=== PATIENT | female | born 1970 | race Caucasian/White ===

== ENCOUNTER → 2017-12-09 09:47 | Outpatient (CLI) | payer BC ==
--- NOTE | ~2017-12-09 | EC ---
PATIENT:CAMMIE SUAREZ DATE OF SERVICE: 12/09/17 SEX: F MEDICAL RECORD: [id number] DATE OF : 68 [facility] AGE OF PATIENT: 47 ADMISSION DATE: 12/09/17 REFERRING PHYSICIAN: INTERPRETING PHYSICIAN: RAYO GOSS MD ECHOCARDIOGRAM REPORT ECHO CHARGES 4 ECHO COMPLETE CLINICAL DIAGNOSIS: MURMUR/CP/SOB ECHOCARDIOGRAPHIC MEASUREMENTS (adult normal given) AC root (d.<3.7cm) 3.0 cm LV Septum d (<1.2 cm> 0.9 cm Valve Excursion 25.2 cm LV Septum (systole) 1.5 cm Left Atria (s.<4.0cm> 4.9 cm LVPW d(<1.2cm) 0.9 cm RV (d.<2.3cm) 2.1 cm LVPW (sytole) 1.5 cm LV diastole(<5.6CM) 7.1 cm MV E-F(>70mm/sec) cm LV systole 5.0 cm LVOT Diameter 2.0 cm MV exc.(>10mm) cm Est.ejection fraction (50-75%) % Pericardial Effusion N DOPPLER: LVIT cm/sec A 24.0 cm/sec E 123 cm/sec LA cm/sec RVSP 26.3 mmHg LVOT 59.0 cm/sec AOP1/2T m/s Asc. Ao 105 cm/sec RVOT 50.0 cm/sec RA cm/sec PA 78.0 cm/sec AV Gradient Peak 4.4 mmHg AV Mean 2.1 mmHg AV Area 2.0 cm MV Gradient Peak 9.6 mmHg MV Mean 2.8 mmHg MV Area cm COMMENTS: [employer] Director: Moiz WHITNEYOE Application Manager: Shannon Goss TAPE# PACS DATE OF SERVICE: 12/09/2017 PROCEDURE: Transthoracic echocardiogram. FINDINGS: 1. The patient has a dilated left ventricle, has mild decreased ejection fraction of 45% to 50%. 2. The patient has severe eccentrically directed mitral regurgitation with prolapse of the posterior mitral valve leaflet. 3. Tricuspid valve has trace tricuspid regurgitation. ECHOCARDIOGRAM REPORT [id number] CAMMIE SUAREZ 4. The right ventricular systolic pressures are normal. 5. The right ventricle is normal functionally. 6. The right atrium is mildly dilated. 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 Recommend further workup. ALISON may be helpful. TRANSINT:[id number] Voice Confirmation ID: [id number] DOCUMENT ID: [id number] RAYO GOSS MD at 1001 CC: [id number] DICTATION DATE: 12/10/17 0734 EXTENSION PROFESSOR: 12/10/17 0941 [facility] CLI 12/09/[address] [address]
[~2017-12-09 09:47] MED LIST: LIPITOR10 MG PO; [UNRECOGNIZED DRUG - OTHER]
[2018-03-08 09:58] VITALS: BMI 22.6
== END | disposition home or self-care (01) ==
LOC: EDSEX 09:47 → D.ECHO 09:47
DX: R01.1 Cardiac murmur, unspecified (principal); R07.9 Chest pain, unspecified; R06.02 Shortness of breath

== ENCOUNTER 2018-01-05 06:36 | Outpatient (CLI) | payer BC ==
[~2018-01-05] VITALS: Ht 175.3 cm; Wt 65.9 kg
--- NOTE | ~2018-01-05 | HEMODYNAMI ---
PATIENT:CAMMIE SUAREZ MEDICAL RECORD: [id number] : 68 LOCATION:[facility] ADMISSION DATE: 01/05/18 Generatedon:01/05/20189:06 Patient name: CAMMIE SUAREZ Patient #: [id number] SSN: : 1970 Date of study: 01/05/2018 Page: Of Hemodynamic Procedure Report Patient Data Patient Demographics Procedure consent was obtained First Name: CAMMIE Gender: Female Last Name: ERICK : 1970 [facility] Initial: DANIEL Age: 47 year(s) Patient #: [id number] Race: Unknown Additional ID: [id number] Contact details Address: [address] [place] [address] State: [place] City: [place] Zip code: [address] Past Medical History Allergies Allergen Reaction Date Comments Reported Other allergy 01/05/2018 VENOM-WASP Admission Admission Data Admission Date: 01/05/2018 Admission Time: 6:36 Height (in.): 69 BSA: 1.8 (m2) Height (cm.): 175.26 BMI: 21.41 (kg/m2) Weight (lbs.): 145 Weight (kg.): 65.77 Lab Results Lab Result Date: 01/05/2018 Lab Result Time: 0:00 Biochemistry Name Units Result Min Max BUN mg/dl 19 --(----)*- 7 18 Creatinine mg/dl 0.8 --(-*--)-- 0.6 1.3 CBC Name Units Result Min Max Hemoglobin g/dl 13.8 --(*---)-- 13.5 17.5 Procedure Procedure Types Cath Procedure Diagnostic Procedure Right Heart RHC and LHC w/Coronaries Sedation Charges Moderate Sedation up to 30 minutes Procedure Description Procedure Date Procedure Date: 01/05/2018 Procedure Start Time: 8:19 Procedure End Time: 9:05 Procedure Staff Name Function Tae Sommers MD Performing Physician Suhail Valencia RT Monitor Gianna Bragg RT Scrub Iron Hammond RN Nurse Procedure Data Cath Procedure Fluoroscopy Diagnostic fluoroscopy Total fluoroscopy Time: 4 time: 4 min min Diagnostic fluoroscopy Total fluoroscopy dose: 280 dose: 280 mGy mGy Contrast Material Contrast Material Type Amount (ml) Isovue 300 32 Entry Location Entry Primary Successful Side Size Upsize Upsize Entry Closure Sam ccessful Closure Location (Fr) 1 (Fr) 2 (Fr) Remarks Device Remarks Femoral Right 7 Fr Manual vein Short Compression Femoral Right 5 Fr Exoseal artery Estimated blood loss: 10 ml Diagnostic catheters Device Type Used For End Catheter Placement SWAN 7Fr Thermodilution Procedure cather (131F7P) MULTIPACK JL 4.0 5Fr Procedure catheter MULTIPACK 3DRC 5Fr Procedure catheter MULTIPACK Pigtail 5 Fr Procedure catheter Procedure Complications No complications Procedure Medications Medication Administration Route Dosage Heparin Flush Bag added to field 2 bags (1000units/500ml NS) 0.9% NaCl I.V. 100 ml/hr Versed I.V. 1 mg Versed I.V. 1 mg Fentanyl I.V. 50 mcg Hemodynamics Rest BSA: 1.8 (m2) HGB: 13.8 (g/dl) O2 Consumption: Estimated: 187.92 (ml/min) O2 Con sumption indexed: Estimated:104.4 (ml/min/m) Heart Rate: 85 (bpm) Oxygen Saturations Time Location Sat. Hgb O2 pO2 PCO2 Be iCa Ph HCO 3- Hct NA K+ Use (%) (g/dl) Content (mmHg) (mmHg) (mmol/L) (mmol/L) (mmol/L) (%) (mmo l/L) (mmol/L) (ml/L) 8:27 PA 76.7 8:27 LEBRON 76.9 8:27 RV 75.8 8:27 PCW 95.7 8:28 AO 95.6 8:37 RAL 74.2 Pressure Samples Time Site Value (mmHg) Purpose Heart Use Rate(bpm) 8:26 PA 46/20(33) Snapshot 90 8:27 PCW 17/36(21) Snapshot 87 8:35 RV 42/-1,10 Snapshot 94 8:36 RA 11/9(5) Snapshot 89 8:39 AO 93/68(81) Snapshot 88 8:44 LV 95/-7,14 EDP 85 Gradients Valve Time Site Site Mean SEP/DFP Peak To Heart Use 1 2 (mmHg) (sec/min) Peak Rate (mmHg) (bpm) Aortic 8:45 LV AO 82 Thermodilution Cardiac Output Time Cardiac Output (l/min) Use 8:33 4.76 l/m 8:33 5.64 l/m 8:34 5.61 l/m Calculations Vascular Value Indexed CO SV CO CI Resistance (dyne) values (ml/beat) (l/min) (l/(min*m)) TSVR 1218.4 2193.12 Kate 62.09 5.3 2.9 SVR 1138.21 2048.78 Thermal 60.42 5.34 3 TPVR 500 900 PVR 182.08 327.74 PVR/SVR 0.16 TPVR/TSVR 0.41 Systolic Diastolic Ejection Regurgitation SW SWI Source Kate Vol. Vol. (%) (%) Left 49.18 27.32 Source Qp or Qs Shunts (%) Left To 6.61 Right Content (ml/l) O2 Difference (ml/l) Right To 6.61 124.72 O2 SA 179.42 SA-MV(AV) 35.47 Left O2 MV 143.95 PV-PA(VA) O2 PA 143.95 PV-MV(VV) Flows (l/min) Qs 5.3 Qsi 2.94 Qe/Qp 1 Snapshots Thermal Samples Pre Cath Intra NCS Post Cath Vital Signs Time Heart Resp SPO2 etCO2 NIBP Rhythm Pain Sedation Rate (ipm) (%) (mmHg) (mmHg) Status Level (bpm) 8:07:19 86 17 96 0 103/66(82) NSR 0 (11) 10(A) , No pain 8:11:53 88 17 95 0 102/60(85) NSR 0 (11) 10(A) , No pain 8:16:26 84 22 95 0 101/63(82) NSR 0 (11) 10(A) , No pain 8:20:56 91 27 95 0 105/68(87) NSR 0 (11) 10(A) , No pain 8:25:29 88 23 98 106/70(90) NSR 0 (11) 10(A) , No pain 8:30:01 91 23 96 27.4 103/69(85) NSR 0 (11) 10(A) , No pain 8:34:31 86 24 97 26 104/75(86) NSR 0 (11) 10(A) , No pain 8:39:04 92 26 100 26 104/70(83) NSR 0 (11) 10(A) , No pain 8:43:39 86 19 98 30.4 105/61(80) NSR 0 (11) 10(A) , No pain 8:48:11 86 18 98 25.2 105/72(88) NSR 0 (11) 10(A) , No pain 8:50:20 87 23 97 33.4 104/69(86) NSR 0 (11) 10(A) , No pain 8:54:52 87 21 98 34.9 104/67(86) NSR 0 (11) 10(A) , No pain 8:59:33 0 No Cuff NSR 0 (11) 10(A) , No pain 9:04:13 0 No Cuff NSR 0 (11) 10(A) , No pain Medications Time Medication Route Dose Verified Delivered Reason Notes Effect iveness by by 8:15:17 Heparin Flush added 2 Tae Iron used for Bag to bags Matthieu Hammond RN procedure (1000units/500ml field NS) 8:15:19 Versed I.V. 1 mg Tae Iron for Matthieu Hammond RN sedation 8:15:24 0.9% NaCl I.V. 100 Tae Iron Per ml/hr Matthieu Hammond RN physician 8:38:55 Versed I.V. 1 mg Tae Iron for Matthieu Hammond RN sedation 8:39:03 Fentanyl I.V. 50 Tae Iron for [facility] [place] Matthieu Hammond RN sedation Procedure Log Time Note 7:33:08 Time tracking: Regular hours 7:33:12 Plan of Care:Hemodynamics will remain stable., Cardiac rhythm will remain stable., Comfort level will be maintained., Respiratory function will remain adequate., Patient/ family verbilizes understanding of procedure., Procedure tolerated without complication., Recovers from procedure without complications.. 7:33:13 Signed procedure consent form obtained from patient. 7:34:13 H&P Date Dictated: 12/30/2017 Within 30 days and on chart., H&P Addendum completed by physician on day of procedure. (MUST COMPLETE FOR ALL OUTPATIENTS). 7:34:32 Patient allergic to Other allergyVENOM-WASP 7:37:58 Suhail Valencia RT(R) sent for patient. Start room use. 7:51:15 Lab Result : Creatinine 0.8 mg/dl 7:51:15 Lab Result : BUN 19 mg/dl 7:51:15 Lab Result : Hemoglobin 13.8 g/dl 7:55:41 Patient received from Pre/Post Procedure Room to CCL 1 Alert and oriented. Tansferred to table in Supine position. 7:55:42 Warm blankets applied, and nidhi hugger turned on for patient comfort. 7:55:43 Correct patient and procedure confirmed by team. 7:55:44 ECG and BP/O2 sat monitors applied to patient. 7:57:43 Pre-procedure instructions explained to patient. 7:57:43 Pre-op teaching completed and patient verbalized understanding. 7:57:47 Family in waiting room. 7:57:49 Patient NPO since Midnight. 7:57:55 Is the patient allergic to Iodine/contrast media? No. 7:57:56 Is patient on blood thinner?Yes 7:57:59 ACC The patient was administered the following blood thiners within the last 24 hours: ACCPlavix 7:58:01 Patient diabetic? No. 7:58:08 Previous problem with sedation/anesthesia? No ? 7:58:09 Snore? No 7:58:10 Sleep apnea? No 7:58:11 Deviated septum? No 7:58:12 Opens mouth fully? Yes 7:58:14 Sticks out tongue? Yes 7:58:17 Airway obstruction? No ? 7:58:19 Dentures? No ? 7:58:23 Patient pain scale 0/10 ?. 7:58:34 IV patent on arrival in left wrist with 0.9% NaCl at KVO. 7:58:35 Lab results completed and on chart. 7:58:40 Right groin area was prepped with chlora-prep and draped in sterile fashion 7:58:42 Use device set Femoral Dx 7:58:44 ACIST Syringe (67117) opened to sterile field. 7:58:44 Bag Decanter (2002) opened to sterile field. 7:58:45 Medline Cath Pack ([id number]) opened to sterile field. 7:58:48 Tegaderm 4 x 4 (1626W) opened to sterile field. 7:58:49 ACIST Manifold (80280) opened to sterile field. 7:58:50 ACIST Hand Control (62953) opened to sterile field. 7:58:53 MICROPUNCTURE 4FR Cook ([id number]) opened to sterile field. 7:58:55 DIAGNOSTIC WIRE .035 260cm J wire (122799) opened to sterile field. 7:58:56 DIAGNOSTIC Multipack 5Fr catheter set ([id number]) opened to sterile field. 7:59:11 Alarms reviewed by R. N. 7:59:12 Sharps counted by scrub and verified by R.N. 8:01:42 Vital chart was started 8:01:43 Baseline sample Acquired. 8:01:59 Rhythm: sinus rhythm 8:02:01 Full Disclosure recording started 8:10:47 --------ALL STOP TIME OUT------ 8:10:48 Final Timeout: patient, procedure, and site verified with staff and physician. All members of the team are in agreement. 8:10:51 Right groin site verified by team. 8:10:54 Physical assessment completed. ASA score P 2 - A patient with mild systemic disease as per Tae Sommers MD. 8:10:57 Sedation plan: IV Moderate Sedation Medication:Versed, Fentanyl 8:15:17 Heparin Flush Bag (1000units/500ml NS) 2 bags added to field was administered by Iron Hammond RN; used for procedure; 8:15:19 Versed 1 mg I.V. was administered by Iron Hammond RN; for sedation; 8:15:24 0.9% NaCl 100 ml/hr I.V. was administered by Iron Hammond RN; Per physician; 8:15:51 SHEATH 7FR [place] (VHF142) opened to sterile field. 8:15:58 SHEATH 5Fr Prelude ([id number]) opened to sterile field. 8:16:57 Zero performed for pressure channel P1 8:16:59 Zero performed for pressure channel P1 8:19:42 Procedure started. 8:19:46 Local anesthetic to right femoral artery with Lidocaine 2% by Tae Sommers MD.INITIAL ACCESS ONLY 8:21:53 Access obtained with 4Fr micropunture. 8:22:32 A 7 Fr Short sheath was inserted into the Right Femoral vein 8:23:41 Access obtained with 4Fr micropunture. 8:23:56 A 5 Fr sheath was inserted into the Right Femoral artery 8:24:30 A SWAN 7Fr Thermodilution cather (131F7P) was advanced over the wire and used for Procedure. 8:27:37 PA saturation: 76.7% 8:27:43 Mid RA saturation: 76.9% 8:27:45 RV saturation: 75.8% 8:27:51 PCW saturation: 95.7% 8:28:52 AO saturation: 95.6% 8:33:19 Thermodilution performed using a Coles 131F7 7.0 Fr 19-22C 10.00 mL. Injectate temperature was 16.66 C, CO: 4.76 L/min, average CO: 5.34 L/min 8:33:55 Thermodilution performed using a Coles 131F7 7.0 Fr 19-22C 10.00 mL. Injectate temperature was 16.38 C, CO: 5.64 L/min, average CO: 5.34 L/min 8:34:35 Thermodilution performed using a Coles 131F7 7.0 Fr 19-22C 10.00 mL. Injectate temperature was 16.21 C, CO: 5.61 L/min, average CO: 5.34 L/min 8:37:31 Low RA saturation: 74.2% 8:38:07 Right heart pressures and cardiac output were obtained. 8:38:18 Oximetry samples were obtained 8:38:19 Rochelle-Braden removed. 8:38:52 A MULTIPACK JL 4.0 5Fr catheter was advanced over the wire and used for Procedure. 8:38:55 Versed 1 mg I.V. was administered by Iron Hammond RN; for sedation; 8:39:03 Fentanyl 50 mcg I.V. was administered by Iron Hammond RN; for sedation; 8:39:50 LCA angiography performed. 8:40:45 Catheter exchanged over wire. 8:40:59 A MULTIPACK 3DRC 5Fr catheter was advanced over the wire and used for Procedure. 8:42:14 RCA angiography performed. 8:42:56 Catheter exchanged over wire. 8:43:03 A MULTIPACK Pigtail 5 Fr catheter was advanced over the wire and used for Procedure. 8:45:11 LV angiography performed. 8:45:12 LV gram done using RODRIGUEZ 8:45:26 EF : 50 % 8:45:29 LV hemodynamics recorded. 8:45:32 Injector settings: Ml/sec: 15, Volume: 30, 8:45:35 Catheter removed. 8:45:37 EXOSEAL 5Fr (EX500) opened to sterile field. 8:48:14 Sheath removed intact; hemostasis achieved with Exoseal to the Right Femoral artery. 8:48:28 Sheath removed intact; hemostasis achieved with Manual Compression to the Right Femoral vein. 8:48:30 Procedure ended.(Physican Out) 8:48:44 Fluoroscopy time 04.00 minutes. 8:48:52 Fluoroscopy dose: 280 mGy 8:48:52 Flurop Dose total: 280 8:48:57 Contrast amount:Isovue 300 32ml. 8:48:59 Sharps counted by scrub and verified by R.N. 8:49:02 Insertion/operative site no bleeding no hematoma. 8:49:13 Post-op/insertion site Right Femoral artery dressed using a 4 x 4 and Tegaderm. 8:49:50 Procedure type changed to Cath procedure, Diagnostic procedure, Right Heart, RHC and LHC w/Coronaries, Sedation Charges, Moderate Sedation up to 30 minutes 8:49:56 Post Procedure Pulses reassessed and unchanged 8:49:59 Post-procedure physical assessment completed. ASA score P 2 - A patient with mild systemic disease as per Tae Sommers MD. 8:50:02 Post procedure rhythm: unchanged. 8:50:05 Estimated blood loss: 10 ml 8:50:06 Post procedure instruction explained to patient.Patient verbalizes understanding. 8:50:07 Patient needs reinforcement of post procedure teaching. 8:50:11 Procedure Complication : No complications 8:50:31 Procedure and supply charges have been captured, reviewed, submitted and are correct. 9:03:03 Patient Height : 69 inches 9:03:05 Patient Weight : 145 lbs 9:05:01 Vital chart was stopped 9:05:02 See physician's report for complete and final results. 9:05:07 Report given to Pre/Post Procedure Room. 9:05:11 Patient transfered to Pre/Post Procedure Room with Stretcher. 9:05:14 Procedure ended. 9:05:14 Full Disclosure recording stopped 9:05:19 End room use (Document Last) Device Usage Item Name Manufacture Quantity Catalog Hospital Part Current Minim al Lot# / Number Charge Number Stock Stock Serial# Code ACIST Syringe Acist 1 05409 705887 643514 906771 20 (49452) Medical Systems Inc Bag Decanter Microtek 1 2001S 962337 23817 995024 5 (2001S) Medical Inc. Medline Cath Cardinal 1 [id number] 001884 95026 512289 5 Pack Health ([id number]) Tegaderm 4 x 4 3M 1 1626W 622102 375148 010603 5 (1626W) ACIST Manifold Acist 1 00192 528572 780137 920661 5 (74312) Medical Systems Inc ACIST Hand Acist 1 29721 413239 787549 411592 5 Control Medical (99845) Systems Inc MICROPUNCTURE Cook Medical 1 [id number] 080838 900036 114834 5 4FR Cook (T91085) DIAGNOSTIC St Jose C 1 854155 802200 553576 555820 30 WIRE .035 260cm J wire (686095) DIAGNOSTIC Cardinal 1 IE7700 891914 35748 601793 30 Multipack 5Fr Health catheter set (QE1257) SHEATH 7FR Terumo 1 WGG403 410305 090389 372265 5 [place] (OTR320) SHEATH 5Fr Merit 1 [id number] 391600 644607 651051 5 Prelude Medical ([id number]) SWAN 7Fr Coles 1 131F7P 715762 52814 604707 3 Thermodilution Lifesciences cather (131F7P) MULTIPACK JL Cardinal 1 638298 5 4.0 5Fr Health catheter MULTIPACK 3DRC Cardinal 1 748017 5 5Fr catheter Health MULTIPACK Cardinal 1 212102 5 Pigtail 5 Fr Health catheter EXOSEAL 5Fr Cardinal 1 EX500 604008 387137 233315 10 (EX500) Health Signature Audit [place] Stage Time Signature Unsigned Intra-Procedure 01/05/2018 Suhail Valencia 9:06:34 AM RT(R) Signatures Monitor : Suhail Valencia RT Signature : Date : Time : [address] [place] [address]
[2018-01-05] MEDS ORDERED: LIPITOR10 MG PO (06:43)
[2018-01-05 06:53] VITALS: BP 114/56; Ht 175.3 cm; Wt 65.9 kg
[2018-01-05 07:00] LABS: BASOPHILS 0.4 % (0-2); EOSINOPHILS 1.5 % (0-7); HEMATOCRIT 40.6 % (36.0-48.0); HEMOGLOBIN 13.8 g/dL (12-16); IMMATURE GRANULOCYTES 0.2 % (0-5); LYMPHOCYTES 29.4 % (15-50); MCH 28.6 pg (26.0-34.0); MCV 84.1 fL (80.0-100.0); MEAN PLATELET VOLUME 9.4 fL (7.4-10.4); MONOCYTES 7.7 % (2-11); NEUTROPHILS 60.8 % (40-80); PLATELET COUNT 245 10x3/uL (130-400); RBC 4.83 10x6/uL (4.00-5.40); RDW 12.3 % (11.5-14.5); WBC 5.5 10x3/uL (4.8-10.8)
[2018-01-05 07:09] LABS: CALC OSMOLALITY 274 mosm/kg (275-300); CALCIUM 8.4 mg/dL (8.5-10.1); CARBON DIOXIDE 24.1 mmol/L (21.0-32.0); CHLORIDE - SERUM 104 mmol/L (98-107); CREATININE - SERUM 0.8 mg/dL (0.6-1.3); GLUCOSE 87 mg/dL (74-106); POTASSIUM - SERUM 4.2 mmol/L (3.5-5.1); SODIUM 137 mmol/L (136-145); UREA NITROGEN 19 mg/dL (7-18); eGFR NON AFRICAN AMERICAN 81 mL/min (90-120)
== END 2018-01-05 12:45 | disposition home or self-care (01) ==
LOC: EDSEX 06:36 → D.CATH 06:36
PROVIDERS: Internal Medicine Cardiovascular Disease
DX: R01.1 Cardiac murmur, unspecified (principal); I34.0 Nonrheumatic mitral (valve) insufficiency; Z01.812 Encounter for preprocedural laboratory examination

== ENCOUNTER 2018-01-26 08:12 | Outpatient (CLI) | payer BC ==
[~2018-01-26] VITALS: Ht 175.3 cm; Wt 65.9 kg
--- NOTE | ~2018-01-26 | HEMODYNAMI ---
PATIENT:CAMMIE SUAREZ MEDICAL RECORD: [id number] : 68 LOCATION:[facility] ADMISSION DATE: 01/26/18 Generatedon:01/26/201811:25 Patient name: CAMMIE SUAREZ Patient #: [id number] SSN: : 1970 Date of study: 01/26/2018 Page: Of Hemodynamic Procedure Report Patient Data Patient Demographics Procedure consent was obtained First Name: CAMMIE Gender: Male Last Name: ERICK : 1970 [facility] Initial: DANIEL Age: 47 year(s) Patient #: [id number] Race: Unknown Additional ID: [id number] Contact details Address: [address] [place] [address] State: [place] City: [place] Zip code: [address] Past Medical History Allergies Allergen Reaction Date Comments Reported Other allergy 01/05/2018 VENOM-WASP Other allergy 01/26/2018 WASP VENOM Admission Admission Data Admission Date: 01/26/2018 Admission Time: 8:12 Lab Results Lab Result Date: 01/26/2018 Lab Result Time: 0:00 Biochemistry Name Units Result Min Max BUN mg/dl 22 --(----)-* 7 18 CBC Name Units Result Min Max Hemoglobin g/dl 14 --(*---)-- 13.5 17.5 Procedure Procedure Types Cath Procedure Diagnostic Procedure ALISON Procedure Description Procedure Date Procedure Date: 01/26/2018 Procedure Start Time: 10:58 Procedure Staff Name Function Edwin Grajeda RT Monitor Tae Sommers MD Performing Physician Uday Gaitan Barrel Bung Remover And Dumper Beni Douglas MD Additional personnel Gianna Bragg RT Glue Maker Itz Moffett RN Nurse Procedure Data Cath Procedure Estimated blood loss: 0 ml Procedure Complications No complications Hemodynamics Rest HGB: 14 (g/dl) Heart Rate: 78 (bpm) Snapshots Pre Cath Intra NCS Post Cath Vital Signs Time Heart Resp SPO2 etCO2 NIBP (mmHg) Rhythm Pain Sedation Rate (ipm) (%) (mmHg) Status Level (bpm) 11:09:20 86 10 97 15.7 112/76(95) NSR 0 (11) 10(A) , No pain 11:13:56 93 22 13.5 123/91(110) NSR 0 (11) 10(A) , No pain 11:18:35 81 13 98 15 117/76(104) NSR 0 (11) 10(A) , No pain 11:23:13 77 27 102/66(81) NSR 0 (11) 10(A) , No pain Procedure Log Time Note 10:59:11 Edwin Perryyder RT(R) sent for patient. Start room use. 10:59:53 Signed procedure consent form obtained from patient. 10:59:55 Time tracking: Regular hours (M-F 7:00 - 5:00) 10:59:59 Plan of Care:Hemodynamics will remain stable., Cardiac rhythm will remain stable., Comfort level will be maintained., Respiratory function will remain adequate., Patient/ family verbilizes understanding of procedure., Procedure tolerated without complication., Recovers from procedure without complications.. 11:00:08 H&P Date Dictated: 01/13/2018 Within 30 days and on chart., H&P Addendum completed by physician on day of procedure. (MUST COMPLETE FOR ALL OUTPATIENTS). 11:02:06 Patient allergic to Other allergyWASP VENOM 11:03:14 Patient arrived from Pre/Post Procedure Room to [facility]. Patient remains on bed/stretcher for procedure. 11:03:16 Warm blankets applied, and nidhi hugger turned on for patient comfort. 11:03:16 Correct patient and procedure confirmed by team. 11:03:17 ECG and BP/O2 sat monitors applied to patient. 11:03:40 Beni Douglas MD present and monitoring patient for TIVA. 11:03:44 Uday Gaitan Knock Up Assembler present for ALISON. 11:07:47 Lab Result : BUN 22 mg/dl 11:07:47 Lab Result : Hemoglobin 14 g/dl 11:08:27 Vital chart was started 11:08:30 Baseline sample Acquired. 11:08:34 Rhythm: sinus rhythm 11:08:36 Full Disclosure recording started 11:08:37 Pre-procedure instructions explained to patient. 11:08:37 Pre-op teaching completed and patient verbalized understanding. 11:08:39 Family in patients room. 11:08:41 Patient NPO since Midnight. 11:08:43 Is the patient allergic to Iodine/contrast media? No. 11:08:50 Is patient on blood thinner?No 11:08:52 Patient diabetic? No. 11:08:56 Previous problem with sedation/anesthesia? No ? 11:08:57 Snore? Yes 11:08:59 Sleep apnea? No 11:09:00 Deviated septum? No 11:09:01 Opens mouth fully? Yes 11:09:02 Sticks out tongue? Yes 11:09:05 Airway obstruction? No ? 11:09:07 Dentures? No ? 11:09:29 IV patent on arrival in left forearm with 0.9% NaCl at [facility]. 11:09:37 Lab results completed and on chart. 11::40 Alarms reviewed by R. N. 11::40 Sharps counted by scrub and verified by R.N. 11::44 --------ALL STOP TIME OUT------ 11::44 Final Timeout: patient, procedure, and site verified with staff and physician. All members of the team are in agreement. 11:09:49 Physical assessment completed. ASA score P 2 - A patient with mild systemic disease as per Tae Sommers MD. 11:09:53 Sedation plan: TIVA Medication:Propofol 11:10:00 ALISON started. 11:15:39 ALISON completed. 11:16:02 Procedure ended.(Physican Out) 11:16:20 Post-procedure physical assessment completed. ASA score P 2 - A patient with mild systemic disease as per Tae Sommers MD. 11:16:24 Post procedure rhythm: unchanged. 11:16:26 Estimated blood loss: 0 ml 11:16:29 Post procedure instruction explained to patient.Patient verbalizes understanding. 11:16:29 Patient needs reinforcement of post procedure teaching. 11:19:18 Procedure and supply charges have been captured, reviewed, submitted and are correct. 11:19:21 Procedure Complication : No complications 11:24:51 Vital chart was stopped 11:24:52 See physician's report for complete and final results. 11:24:53 Report given to Pre/Post Procedure Room. 11:24:56 Patient transfered to Pre/Post Procedure Room with Bed. 11:24:59 End room use (Document Last) Signature Audit Gap Stage Time Signature Unsigned Intra-Procedure 01/26/2018 Gianna Bragg 11:25:11 AM RT(R) Signatures Monitor : Edwin Grajeda RT Signature : Date : Time : [address] [place] [address]
[~2018-01-26 08:12] MED LIST changes: -[UNRECOGNIZED DRUG - OTHER]
[2018-01-26 08:41] LABS: BASOPHILS 0.4 % (0-2); EOSINOPHILS 1.3 % (0-7); HEMATOCRIT 41.7 % (36.0-48.0); LYMPHOCYTES 50.1 % (15-50); MCH 28.5 pg (26.0-34.0); MCHC 33.6 g/dL (31.0-37.0); MCV 84.9 fL (80.0-100.0); MEAN PLATELET VOLUME 9.4 fL (7.4-10.4); MONOCYTES 7.9 % (2-11); NEUTROPHILS 40.3 % (40-80); PLATELET COUNT 252 10x3/uL (130-400); RBC 4.91 10x6/uL (4.00-5.40); RDW 12.3 % (11.5-14.5); WBC 5.5 10x3/uL (4.8-10.8)
[2018-01-26 08:48] VITALS: BP 109/74; Ht 175.3 cm; Wt 65.9 kg
[2018-01-26 09:01] LABS: CALC OSMOLALITY 279 mosm/kg (275-300); CALCIUM 8.6 mg/dL (8.5-10.1); CARBON DIOXIDE 23.7 mmol/L (21.0-32.0); CHLORIDE - SERUM 104 mmol/L (98-107); CREATININE - SERUM 0.8 mg/dL (0.6-1.3); GLUCOSE 78 mg/dL (74-106); POTASSIUM - SERUM 4.2 mmol/L (3.5-5.1); SODIUM 139 mmol/L (136-145); UREA NITROGEN 22 mg/dL (7-18); eGFR NON AFRICAN AMERICAN 81 mL/min (90-120)
== END 2018-01-26 12:53 | disposition home or self-care (01) ==
LOC: EDSEX 08:12 → D.CATH 08:12
PROVIDERS: Internal Medicine Cardiovascular Disease
DX: I34.0 Nonrheumatic mitral (valve) insufficiency (principal); Z01.812 Encounter for preprocedural laboratory examination

== ENCOUNTER 2018-03-05 05:00 | Inpatient (IN) | payer BC ==
[2018-03-02 14:45] LABS: BASOPHILS 0.3 % (0-2); EOSINOPHILS 1.1 % (0-7); HEMATOCRIT 40.2 % (42.0-54.0); HEMOGLOBIN 13.7 g/dL (13.5-17.5); IMMATURE GRANULOCYTES 0.2 % (0-5); LYMPHOCYTES 31.3 % (15-50); MCH 28.8 pg (26.0-34.0); MCHC 34.1 g/dL (31.0-37.0); MCV 84.6 fL (80.0-100.0); MEAN PLATELET VOLUME 9.5 fL (7.4-10.4); MONOCYTES 4.2 % (2-11); NEUTROPHILS 62.9 % (40-80); PLATELET COUNT 251 10x3/uL (130-400); RBC 4.75 10x6/uL (4.20-6.10); RDW 12.1 % (11.5-14.5); WBC 6.4 10x3/uL (4.8-10.8)
[2018-03-02 14:53] LABS: APTT 32.9 SECONDS (22.8-39.4); INR 1.04 (0.85-1.17); PROTIME 13.2 SECONDS (11.6-15.0)
[2018-03-02 15:08] LABS: APPEARANCE CLEAR (CLEAR); BILIRUBIN NEGATIVE (NEGATIVE); COLOR YELLOW (YELLOW); GLUCOSE NEGATIVE (NEGATIVE); KETONE NEGATIVE (NEGATIVE); NITRITE NEGATIVE (NEGATIVE); PROTEIN NEGATIVE (NEGATIVE); SPECIFIC GRAVITY 1.015 (1.005-1.020); UROBILINOGEN NORMAL (NORMAL)
[2018-03-02 15:09] LABS: WHITE CELLS - URINE OCC /hpf (0-5)
[2018-03-02 15:11] LABS: ALBUMIN 4.2 g/dL (3.4-5.0); ALKALINE PHOSPHATASE 55 U/L (46-116); ALT (SGPT) 35 U/L (10-68); CALC OSMOLALITY 282 mosm/kg (275-300); CARBON DIOXIDE 28.9 mmol/L (21.0-32.0); CHLORIDE - SERUM 103 mmol/L (98-107); CHOLESTEROL, TOTAL 207 mg/dL (0-200); CREATININE - SERUM 0.9 mg/dL (0.6-1.3); GLUCOSE 94 mg/dL (74-106); POTASSIUM - SERUM 4.3 mmol/L (3.5-5.1); PROTEIN - SERUM 7.4 g/dL (6.4-8.2); SODIUM 140 mmol/L (136-145); T4 THYROXIN - FREE 1.05 ng/dL (0.76-1.46); THYROID STIMULATING HORMONE 1.96 uIU/mL (0.36-3.74); UREA NITROGEN 23 mg/dL (7-18); URIC ACID 4.3 mg/dL (2.6-7.2); eGFR NON AFRICAN AMERICAN > 90 mL/min (90-120)
[2018-03-05] VITALS (38 sets, daily range): BP systolic 75–135; BP diastolic 46–73; BMI 21.4; BMI 21.6
[~2018-03-05] VITALS: Ht 175.3 cm; Wt 71.4 kg
--- NOTE | ~2018-03-05 | TEE ---
PATIENT:CAMMIE SUAREZ MEDICAL RECORD: [id number] LOCATION:[place] [address] AGE OF PATIENT: 47 ADMISSION DATE: 03/05/18 SEX: M REFERRING PHYSICIAN: INTERPRETING PHYSICIAN: ADELITA DALY MD TRANSESOPHAGEAL ECHOCARDIOGRAM Date: 03/05/18 ALISON CHARGE Y INDICATIONS: MVR PREMEDICATIONS: PATIENT'S RESPONSE PROCEDURE DOPPLER MEASUREMENTS: LVIT LA PA RA LVOT RVOT Asc. Ao AV Gradient Peak AV Mean AV Area MV Gradient Peak MV Mean MV Area INTERPRETATION: LVd: 5.7 cm LVs: 3.5 cm Doppler: 2-D: COLOR FLOW DOPPLER NORMAL SALINE STUDY: MISCELLANOUS: DIAGNOSIS: PLAN: Chief Lock Operator:Shannon Sommers [facility] Paramedic: Moiz LEON COMMENTS: DATE OF SERVICE: PROCEDURE: Transesophageal echo evaluation of valvular structures during mitral valve replacement. FINDINGS: 1. Left ventricular chamber size is within normal limits. Left ventricular systolic function is normal. Overall ejection fraction estimated at 55%. 2. The left atrium is moderately dilated. Right atrium and right ventricular TRANSESOPHAGEAL ECHOCARDIOGRAM REPORT [id number] CAMMIE SUAREZ chamber sizes as well moderately dilated. 3. Valvular structures: Mitral valve demonstrates severe mitral regurgitation redundancy. The remaining valvular structures have normal structure and motion. 4. Doppler interrogation other than the severe mitral regurgitation only reveals trace tricuspid regurgitation, no other valvular insufficiency or stenosis. 5. No evidence of pericardial effusion or left ventricular thrombus. TRANSINT:[id number] Voice Confirmation ID: [id number] DOCUMENT ID: [id number] at 1403 CC: [id number] DICTATION DATE: 03/05/18 1220 SALES DEPARTMENT SUPERVISOR: 03/05/18 1432 ADM IN [place] [id number] [place] [address]
--- NOTE | ~2018-03-05 | TEE ---
PATIENT:CAMMIE SUAREZNE MEDICAL RECORD: [id number] LOCATION:[place] [address] AGE OF PATIENT: 47 ADMISSION DATE: 03/05/18 SEX: M REFERRING PHYSICIAN: INTERPRETING PHYSICIAN: RAYO GOSS MD TRANSESOPHAGEAL ECHOCARDIOGRAM Date: 03/08/18 ALISON CHARGE Y INDICATIONS: MVR PREMEDICATIONS: PATIENT'S RESPONSE PROCEDURE DOPPLER MEASUREMENTS: LVIT LA PA 113 RA LVOT 79.0 RVOT 63.0 Asc. Ao 142 AV Gradient Peak 8.0 AV Mean 3.7 AV Area 1.8 MV Gradient Peak 23.0 MV Mean 6.3 MV Area INTERPRETATION: LVd: 5.7 cm LVs: 3.5 cm Doppler: 2-D: COLOR FLOW DOPPLER NORMAL SALINE STUDY: MISCELLANOUS: DIAGNOSIS: PLAN: Ham Stripper:Daneil Guillen Crew Clerk: Moiz LEON COMMENTS: DATE OF SERVICE: 03/12/2018 The patient underwent a transesophageal echocardiogram. The patient had recent mitral valve repair. FINDINGS: 1. Left atrial appendage was visualized briefly and appears to have no evidence of thrombus or spontaneous echo contrast. 2. The left ventricular dimensions appeared to be mildly dilated. The TRANSESOPHAGEAL ECHOCARDIOGRAM REPORT [id number] CAMMIE SUAREZ dimensions end-diastole 6.5 cm. Overall, ejection fraction is 40% to 45%. There was considerable proximal flow convergence across the mitral valve ring and through the anterior mitral valve leaflet. Unable to get effective orifice area on the proximal flow to get an effective regurgitant volume, but by color appears to be severe regurgitation. 3. The aortic valve is trileaflet and appears to be normal with trace aortic insufficiency. 4. The left atrium is dilated. TRANSINT:[id number] Voice Confirmation ID: [id number] DOCUMENT ID: [id number] at 1120 CC: [id number] DICTATION DATE: 03/12/18 1527 VISCOSITY INSPECTOR: 03/12/18 1808 DIS IN 03/14/18 [place] [address] [place] [id number]
--- NOTE | ~2018-03-05 | OP ---
PATIENT NAME: CAMMIE SUAREZ MEDICAL RECORD: [id number] :68 LOCATION:[facility].CV07 ADMISSION DATE:03/05/18 SURGEON: MIKE SOUZA MD DATE OF OPERATION: 03/05/2018 SURGEON: Mike Souza MD SENIOR ENGINEERING MANAGER: SHORTY Angel OPERATION PERFORMED: Mitral valve repair with quadrangular excision, central scallop, posterior leaflet, and neochordae to anterior leaflet, localized posterior mitral valve annuloplasty, 32 mm Coles annuloplasty ring. PREOPERATIVE DIAGNOSIS: Mitral regurgitation with dilated cardiomyopathy. POSTOPERATIVE DIAGNOSIS: Mitral regurgitation with dilated cardiomyopathy. ANESTHESIA: General endotracheal anesthesia. ESTIMATED BLOOD LOSS: Total cardiopulmonary bypass with Cell Saver. COMPLICATIONS: None. SPECIMENS: A portion of the posterior leaflet. CONDITION: Stable. DISPOSITION: ICU. OPERATIVE FINDINGS: After the initial repair and separation from cardiopulmonary bypass, there was a jet directed posteriorly from either the slightly redundant anterior leaflet or under the annuloplasty ring near the side of quadrangular resection, returned to bypass where the free edge of the anterior leaflet was shortened with Philipp-Eulogio suture and additional pledgeted suture placed in the central posterior area of the mitral valve separation with a very small posterior jet. INDICATION: Mitral regurgitation, ventricular cardiomyopathy, and dilation. PROCEDURE NOTE IN DETAIL: The patient brought to the operative suite. General anesthesia was obtained, the patient was prepped and draped. Median sternotomy incision was made. Subcutaneous tissue was divided with electrocautery. The sternum was divided with a saw. The pericardium was opened. Heparin was given. The area was cannulated. Bicaval cannulation was performed. The patient was placed on cardiopulmonary bypass. Retrograde cardioplegia cannula was inserted. The interatrial groove was dissected out. Both cavae were freed. The patient was cooled. Crossclamp was placed. Cardioplegia was given antegrade and retrograde and this was repeated at 50 and 20-minute intervals. The atrium was opened. The valve was visualized. Slightly redundant anterior leaflet and a severely redundant central posterior leaflet, which was then excised primarily anastomosed in a localized annular pledget. Then, the valve was sized to 32 mm. Interrupted sutures were placed and the mitral valve annulus ring was carefully lowered into place. The valve was checked and it had a very minimal regurgitation, but still a billowing anterior leaflet. The OPERATIVE REPORT [id number] CAMMIE SUAREZ atriotomy was closed. The ventricle was deaired. The patient was in a spontaneous rhythm and weaned from cardiopulmonary bypass and the atrial cannula were removed. ALISON findings as above. So the patient was recannulated and placed on cardiopulmonary bypass, re-cooled, crossclamp placed. Cardioplegia given. Then, valve visualized with Philipp-Eulogio cords placed from the anterior leaflet to each papillary muscle. There was essentially no leak whatsoever and no evidence of mitral stenosis. The patient was then again closed and weaned from cardiopulmonary bypass with findings as above. Thorough irrigation was undertaken. Protamine was given. The patient was decannulated. All cannula sites were oversewn. Drains were placed in the mediastinum. Atrial and ventricular pacing wires were placed. Pericardium was approximated over the aorta. Sternum was closed with wires. Fascia was closed. Subcutaneous tissue closed. Skin was closed. Dermabond was placed. The needle and sponge counts were correct and the patient was taken to the ICU in stable condition. TRANSINT:[id number] Voice Confirmation ID: [id number] DOCUMENT ID: [id number] MIKE SOUZA MD at 1141 CC: RAYO GOSS MD [id number] DICTATION DATE: 03/05/181828 SUPERVISOR ELEMENTARY EDUCATION: 03/06/18 0152 ADM IN [place] [address] [place] [address]
--- NOTE | ~2018-03-05 | HP ---
PATIENT: CAMMIE SUAREZ MEDICAL RECORD: [id number] ACCOUNT: [id number] LOCATION:[facility] : 69 ADMISSION DATE: 03/05/18 HISTORY AND PHYSICAL EXAMINATION CAMMIE Pratt (47yo, M) ID# [id number]. Date/Time01/27/2018 10:[id number] [facility] Dept.NPP_[facility] ClinicProviderKALEN SOUZA MDInsuranceMed Primary[place] Insurance # : [id number] PCP : LIONEL PURDY Employer Name : [employer] Prescription: CMX - Member is eligible. Chief Complaint MITRAL VALVE REGURG Patient's Care Team Primary Care Provider (): LIONEL PURDY: [address] [place] [address] [address], [place] [address], , Patient's Pharmacies [facility] (PRIMARY) (MAIL-ORDER, ERX): [address] [facility] [address], , [facility] (ERX): [address] [address], , Vitals BP:108/74 sitting R arm 01/27/2018 10:56 am 110/76 sitting L arm 01/27/2018 10:56 amHR:80/MURMUR 01/27/2018 10:57 amHt:5 ft 9 in 01/27/2018 10:53 amWt:146 lbs 01/27/2018 10:57 amBMI:21.6 01/27/2018 10:57 amAllergies Reviewed Allergies VENOM-WASPMedications Reviewed Medications aspirin 325 mg tablet Take 1 tablet(s) every day by oral route.01/22/18 enteredKathy Wilsonatorvastatin 10 mg tablet Take 1 tablet(s) every day by oral route.12/24/17 filledCaremarkProblems Reviewed Problems Mixed hyperlipidemia - Onset: 12/23/2017 Tendinitis of wrist - Onset: 11/25/2017 Systolic murmur - Onset: 11/25/2017 Adult health examination - Onset: 12/23/2017 Family History Reviewed Family History Maternal Aunt- Coronary arteriosclerosisMother- Coronary arteriosclerosisFather- Coronary arteriosclerosisSocial History Reviewed Social History Cardiology Family history of heart disease?: Y Smoking Status: Never smoker High Cholesterol: Y High blood pressure: N Exercise level: Moderate Overweight: N Obese: N Diabetes: N Alcohol intake: Occasional HISTORY AND PHYSICAL [id number] CAMMIE SUAREZ Diet: Regular Marital status: Single Surgical History Reviewed Surgical History cardiac catheterization 01/05/18 elbow fracture Past Medical History Reviewed Past Medical History Heart Murmur: Y Hyperlipidemia: Y Documents for Discussion N/A Screening None recorded. 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 The patient specifically denies chest pain dyspnea dyspnea with exertion syncope or syncope diaphoresis or palpitations. ROS Additionally reports: essentially negative, as reviewed in the chart ROS as noted in the HPI Physical Exam Patient is a 47-year-old male. Constitutional: General Appearance well nourished and developed and healthy-appearing. Level of Distress NAD. Ambulation ambulating normally. Cardiovascular: Apical Impulse not displaced. Heart Auscultation RRR; 4/6 holo systolic murmur directed toward the apex. Arterial Pulses 2+ bilateral. Edema no edema. Lungs: Repiratory Effort no dyspnea. Percussion no hyperresonance or dullness or flatness. Auscultation no wheezing, rhonchi, or rales / crackles and breathing sounds normal, good air movement, and CTA except as noted. Abdomen: Bowl Sounds normal. Inspection and Palpation no tenderness, guarding, masses, or rebound tenderness and soft and non-distended. Liver non-tender and no hepatomegaly. Spleen non-tender and no splenomegaly. Hernia none palpable. Musculoskeletal System: Gait And Stance normal gait and stance. Digits and Nails normal nails and no cyanosis. Neurologic: Cranial Nerves grossly intact. Reflexes DTRs 2+ bilaterally throughout. Sensation grossly intact. Lymph Nodes: Lymph Nodes no cervical LAD, supraclavicular LAD, axillary LAD, or inguinal LAD. Eyes: Lids and Conjunctivae no discharge or pallor and non-injected. Pupils PERRLA. Cornea grossly intact. EOM EOMI. Lens clear. Sclerae non-icteric. Neck: Neck no masses, enlarged lymph nodes, or carotid bruits and supple and trachea midline. Thyroid no enlargement or nodules and non-tender. HISTORY AND PHYSICAL [id number] CAMMIE SUAREZ Skin: Inspection and Palpation no rash, lesions, ulcers, jaundice, or abnormal nevi. Assessment / Plan 1. Mitral valve regurgitation I34.0: Nonrheumatic mitral (valve) insufficiency HEART VALVE DISEASE: CARE INSTRUCTIONS MITRAL VALVE REGURGITATION: CARE INSTRUCTIONS 2. Non-rheumatic mitral regurgitation I34.0: Nonrheumatic mitral (valve) insufficiency Patient Instructions may continue to work as long as asymptomatic Discussion Notes I discussed the rationale for surgery, the alternatives, the benefits, and the risks with the patient. He is here alone, he lives locally with his grandmother, he has an aunt that is a traveling nurse. We discussed the indications for mitral valve surgery in an asymptomatic patient with currently mild cardiomyopathy, and he states that he understands this. We also discussed the possibility of referral for robotic mitral valve repair, the alternative of minimally invasive, small right anterior thoracotomy, mitral valve repair or replacement. He reports that he lives locally wishes to have the surgery at this hospital and the stress of traveling even to [facility] on hi m greatly. He wishes to wait until March 05 to schedule the surgery, we discussed the warning signs which she'll seek immediate medical attention. KALEN SOUZA MD at 0835 CC: [id number] DICTATION DATE: 01/27/18 1040 ENGINEERING WRITER: KAREN 02/26/18 1508 PRE IN [facility] [address] [place] [address]
--- NOTE | ~2018-03-05 | OP ---
PATIENT NAME: CAMMIE SUAREZ MEDICAL RECORD: [id number] :68 LOCATION:[facility] DEdiliaCV ADMISSION DATE:03/05/18 SURGEON: FRED SORIA MD DATE OF OPERATION: 03/11/2018 SURGEON: Fred Soria MD ANESTHESIA: General endotracheal, Dr. Crouch. OPERATION PERFORMED: 1. Transesophageal echo. 2. Cardioversion. PREOPERATIVE DIAGNOSIS: Atrial fibrillation, mitral regurgitation. POSTOPERATIVE DIAGNOSIS: Atrial fibrillation, mitral regurgitation. INDICATION FOR OPERATION: Assess operative repair. ESTIMATED BLOOD LOSS: None. FINDINGS OF THE OPERATION: A small high pressure low volume jet with a very small vena contracta. There was good coaptation of the valve and leaflet motion. DESCRIPTION OF PROCEDURE: After informed consent, adequate preoperative medication evaluation, the patient was brought to the operating room, placed on the table in the supine position. After induction of general endotracheal anesthesia and application of appropriate monitoring devices, the patient underwent transesophageal echo, no clot noted in the left atrial appendage. The probe was removed. The patient was cardioverted with 360 joules to a sinus rhythm. The patient then underwent transesophageal echo that revealed diminished left ventricular function, 40% ejection fraction, no pericardial effusion. The mitral valve had good leaflet motion with over a centimeter of coaptation. There was a high pressure low volume jet posterior to anterior with a small vena contracta. The tricuspid and aortic valves had normal function. Detailed examination of the mitral valve demonstrated a good repair. The scope was withdrawn. The patient awakened and transferred to the CV ICU in satisfactory condition. TRANSINT:[id number] Voice Confirmation ID: [id number] DOCUMENT ID: [id number] OPERATIVE REPORT [id number] ERICKCAMMIE FRED SHETTY MD at 1200 CC: [id number] DICTATION DATE: 03/11/18 1602 MOBILE WEB APPLICATION DEVELOPER: 03/11/18 1648 ADM IN [place] [address] [place] [address]
--- NOTE | ~2018-03-05 | EC ---
PATIENT:CAMMIE SUAREZ DATE OF SERVICE: 03/05/18 SEX: M MEDICAL RECORD: [id number] DATE OF : [birth year] LOCATION:[place] [address] AGE OF PATIENT: 47 ADMISSION DATE: 03/05/18 REFERRING PHYSICIAN: INTERPRETING PHYSICIAN: RAYO GOSS MD ECHOCARDIOGRAM REPORT ECHO CHARGES 4 ECHO COMPLETE Date: 03/08 CLINICAL DIAGNOSIS: S/P MVR (REPAIR) ECHOCARDIOGRAPHIC MEASUREMENTS (adult normal given) AC root (d.<3.7cm) 3.3 cm LV Septum d (<1.2 cm> 0.9 cm Valve Excursion 2.4 cm LV Septum (systole) 1.4 cm Left Atria (s.<4.0cm> 4.3 cm LVPW d(<1.2cm) 1.1 cm RV (d.<2.3cm) 2.8 cm LVPW (sytole) 1.6 cm LV diastole(<5.6CM) 6.5 cm MV E-F(>70mm/sec) cm LV systole 4.3 cm LVOT Diameter 1.8 cm MV exc.(>10mm) cm Est.ejection fraction (50-75%) % DOPPLER: LVIT cm/sec A 71.0 cm/sec E 224.0 cm/sec LA cm/sec RVSP 51.4 mmHg LVOT 79.0 cm/sec AOP1/2T m/s Asc. Ao 142 cm/sec RVOT 63.0 cm/sec RA cm/sec PA 113 cm/sec AV Gradient Peak 8.0 mmHg AV Mean 3.7 mmHg AV Area 1.8 cm MV Gradient Peak 23.0 mmHg MV Mean 6.3 mmHg MV Area cm COMMENTS: Director Of Reservations: 1 JUSTIN WHITNEYOE Stores Laborer: 2 Dr. Guillen TAPE# PACS Pericardial Effusion N DATE OF SERVICE: PROCEDURE: Transthoracic echocardiogram. FINDINGS: 1. Left ventricle is dilated. Ejection fraction 40%. There is no regional wall motion abnormalities. 2. Left atrium is moderately dilated. 3. Aortic valve is normal. 4. The mitral valve is reported to have mitral valve repair. There appears to ECHOCARDIOGRAM REPORT [id number] CAMMIE SUAREZ be severe mitral regurgitation that is anteriorly directed. 5. Tricuspid valve has mild tricuspid regurgitation. RVSP is 51 mmHg. 6. The right ventricle is mildly dilated. 7. The right atrium was mildly dilated. CONCLUSION: The patient has evidence of valvular cardiomyopathy, is dilated with severe mitral regurgitation anteriorly directed. TRANSINT:[id number] Voice Confirmation ID: [id number] DOCUMENT ID: [id number] RAYO GOSS MD at 1029 CC: [id number] DICTATION DATE: 03/09/18818 BARNWORKER GROOM: 03/09/18 1114 ADM IN [place] [id number] [place] [address]
[2018-03-05] MEDS ORDERED: [UNRECOGNIZED DRUG - OTHER] (05:31)
[2018-03-05 13:36] LABS: HEMATOCRIT 30.3 % (42.0-54.0); MCH 28.2 pg (26.0-34.0); MCV 85.4 fL (80.0-100.0); MEAN PLATELET VOLUME 9.4 fL (7.4-10.4); RBC 3.55 10x6/uL (4.20-6.10); RDW 12.2 % (11.5-14.5); WBC 9.8 10x3/uL (4.8-10.8)
[2018-03-05 13:41] LABS: PLATELET COUNT 90 10x3/uL (130-400)
[2018-03-05 13:48] LABS: APTT 32.5 SECONDS (22.8-39.4); INR 1.87 (0.85-1.17)
[2018-03-05 13:51] LABS: PLATELET ESTIMATE DECREASED
[2018-03-05 13:54] LABS: CHLORIDE - SERUM 109 mmol/L (98-107); CREATININE - SERUM 0.7 mg/dL (0.6-1.3); POTASSIUM - SERUM 4.4 mmol/L (3.5-5.1); SODIUM 145 mmol/L (136-145); UREA NITROGEN 18 mg/dL (7-18); eGFR NON AFRICAN AMERICAN > 90 mL/min (90-120)
[2018-03-05 14:03] LABS: CALC OSMOLALITY 294 mosm/kg (275-300); GLUCOSE 173 mg/dL (74-106)
[2018-03-05 14:04] LABS: CALCIUM 6.9 mg/dL (8.5-10.1)
[2018-03-05 16:47] LABS: INR 1.29 (0.85-1.17); PROTIME 15.6 SECONDS (11.6-15.0)
[2018-03-06] VITALS (92 sets, daily range): BP systolic 91–117; BP diastolic 47–69
[2018-03-06 04:58] LABS: HEMATOCRIT 24.6 % (42.0-54.0); HEMOGLOBIN 8.3 g/dL (13.5-17.5); MCH 28.5 pg (26.0-34.0); MCHC 33.7 g/dL (31.0-37.0); MCV 84.5 fL (80.0-100.0); MEAN PLATELET VOLUME 9.7 fL (7.4-10.4); RBC 2.91 10x6/uL (4.20-6.10); WBC 10.4 10x3/uL (4.8-10.8)
[2018-03-06 05:35] LABS: ALBUMIN 2.4 g/dL (3.4-5.0); ALKALINE PHOSPHATASE 24 U/L (46-116); ALT (SGPT) 23 U/L (10-68); BILIRUBIN - TOTAL 1.03 mg/dL (0.2-1.3); CARBON DIOXIDE 28.3 mmol/L (21.0-32.0); CHLORIDE - SERUM 105 mmol/L (98-107); POTASSIUM - SERUM 3.9 mmol/L (3.5-5.1); PROTEIN - SERUM 4.5 g/dL (6.4-8.2); SODIUM 140 mmol/L (136-145); UREA NITROGEN 20 mg/dL (7-18)
[2018-03-06 05:37] LABS: CALC OSMOLALITY 282 mosm/kg (275-300); CREATININE - SERUM 0.9 mg/dL (0.6-1.3); GLUCOSE 123 mg/dL (74-106); eGFR NON AFRICAN AMERICAN > 90 mL/min (90-120)
[2018-03-06 09:47] LABS: INR 1.31 (0.85-1.17); PROTIME 15.8 SECONDS (11.6-15.0)
[2018-03-07] VITALS (93 sets, daily range): BP systolic 89–111; BP diastolic 52–72
[2018-03-07 05:03] LABS: HEMATOCRIT 24.7 % (42.0-54.0); HEMOGLOBIN 8.2 g/dL (13.5-17.5); MCH 28.3 pg (26.0-34.0); MCHC 33.2 g/dL (31.0-37.0); MCV 85.2 fL (80.0-100.0); MEAN PLATELET VOLUME 10.2 fL (7.4-10.4); RBC 2.9 10x6/uL (4.20-6.10); RDW 13.4 % (11.5-14.5); WBC 12.3 10x3/uL (4.8-10.8)
[2018-03-07 05:22] LABS: ALBUMIN 2.4 g/dL (3.4-5.0); ALKALINE PHOSPHATASE 31 U/L (46-116); ALT (SGPT) 27 U/L (10-68); BILIRUBIN - TOTAL 0.75 mg/dL (0.2-1.3); CALC OSMOLALITY 277 mosm/kg (275-300); CALCIUM 7.2 mg/dL (8.5-10.1); CARBON DIOXIDE 29.6 mmol/L (21.0-32.0); CHLORIDE - SERUM 103 mmol/L (98-107); CREATININE - SERUM 0.7 mg/dL (0.6-1.3); GLUCOSE 128 mg/dL (74-106); SODIUM 137 mmol/L (136-145); UREA NITROGEN 19 mg/dL (7-18); eGFR NON AFRICAN AMERICAN > 90 mL/min (90-120)
[2018-03-07 05:24] LABS: POTASSIUM - SERUM 4.5 mmol/L (3.5-5.1)
[2018-03-08] VITALS (45 sets, daily range): BP systolic 96–117; BP diastolic 53–73; BMI 22.6
[2018-03-08 06:46] LABS: HEMATOCRIT 21.9 % (42.0-54.0); MCH 28.9 pg (26.0-34.0); MCHC 33.3 g/dL (31.0-37.0); MCV 86.6 fL (80.0-100.0); MEAN PLATELET VOLUME 10.2 fL (7.4-10.4); RBC 2.53 10x6/uL (4.20-6.10); RDW 13.5 % (11.5-14.5)
[2018-03-08 06:47] LABS: WBC 8.1 10x3/uL (4.8-10.8)
[2018-03-08 06:48] LABS: HEMOGLOBIN 7.3 g/dL (13.5-17.5)
[2018-03-08 07:06] LABS: ALBUMIN 2.2 g/dL (3.4-5.0); ALKALINE PHOSPHATASE 36 U/L (46-116); ALT (SGPT) 23 U/L (10-68); CARBON DIOXIDE 26.8 mmol/L (21.0-32.0); CHLORIDE - SERUM 103 mmol/L (98-107); CREATININE - SERUM 0.6 mg/dL (0.6-1.3); GLUCOSE 101 mg/dL (74-106); POTASSIUM - SERUM 4.6 mmol/L (3.5-5.1); PROTEIN - SERUM 4.8 g/dL (6.4-8.2); SODIUM 136 mmol/L (136-145); eGFR NON AFRICAN AMERICAN > 90 mL/min (90-120)
[2018-03-08 07:09] LABS: CALC OSMOLALITY 272 mosm/kg (275-300); UREA NITROGEN 14 mg/dL (7-18)
[2018-03-08 16:47] LABS: HEMATOCRIT 26.8 % (42.0-54.0)
[2018-03-09] VITALS (26 sets, daily range): BP systolic 96–117; BP diastolic 51–85
[2018-03-09 06:09] LABS: HEMATOCRIT 28.3 % (42.0-54.0); HEMOGLOBIN 9.2 g/dL (13.5-17.5); MCH 28.1 pg (26.0-34.0); MCHC 32.5 g/dL (31.0-37.0); MCV 86.5 fL (80.0-100.0); MEAN PLATELET VOLUME 9.8 fL (7.4-10.4); RDW 14.2 % (11.5-14.5); WBC 8.7 10x3/uL (4.8-10.8)
[2018-03-09 06:15] LABS: RBC 3.27 10x6/uL (4.20-6.10)
[2018-03-09 06:41] LABS: ALBUMIN 2.5 g/dL (3.4-5.0); ALKALINE PHOSPHATASE 48 U/L (46-116); BILIRUBIN - TOTAL 1.01 mg/dL (0.2-1.3); CALC OSMOLALITY 276 mosm/kg (275-300); CALCIUM 7.7 mg/dL (8.5-10.1); CARBON DIOXIDE 26.3 mmol/L (21.0-32.0); CHLORIDE - SERUM 103 mmol/L (98-107); CREATININE - SERUM 0.6 mg/dL (0.6-1.3); GLUCOSE 96 mg/dL (74-106); POTASSIUM - SERUM 4.4 mmol/L (3.5-5.1); SODIUM 138 mmol/L (136-145); UREA NITROGEN 15 mg/dL (7-18); eGFR NON AFRICAN AMERICAN > 90 mL/min (90-120)
[2018-03-09 06:42] LABS: ALT (SGPT) 34 U/L (10-68)
[2018-03-10] VITALS (23 sets, daily range): BP systolic 93–117; BP diastolic 64–87
[2018-03-10 05:49] LABS: HEMATOCRIT 27.9 % (42.0-54.0); HEMOGLOBIN 9.1 g/dL (13.5-17.5); MCH 28.6 pg (26.0-34.0); MCHC 32.6 g/dL (31.0-37.0); MCV 87.7 fL (80.0-100.0); MEAN PLATELET VOLUME 9.4 fL (7.4-10.4); RBC 3.18 10x6/uL (4.20-6.10); RDW 14.1 % (11.5-14.5); WBC 9.3 10x3/uL (4.8-10.8)
[2018-03-10 06:34] LABS: ALBUMIN 2.4 g/dL (3.4-5.0); ALKALINE PHOSPHATASE 47 U/L (46-116); ALT (SGPT) 39 U/L (10-68); BILIRUBIN - TOTAL 1.07 mg/dL (0.2-1.3); CALC OSMOLALITY 277 mosm/kg (275-300); CALCIUM 8.1 mg/dL (8.5-10.1); CARBON DIOXIDE 27.4 mmol/L (21.0-32.0); CHLORIDE - SERUM 105 mmol/L (98-107); CREATININE - SERUM 0.7 mg/dL (0.6-1.3); GLUCOSE 103 mg/dL (74-106); PROTEIN - SERUM 5.5 g/dL (6.4-8.2); SODIUM 139 mmol/L (136-145); UREA NITROGEN 13 mg/dL (7-18); eGFR NON AFRICAN AMERICAN > 90 mL/min (90-120)
[2018-03-11] VITALS (24 sets, daily range): BP systolic 104–136; BP diastolic 70–88
[2018-03-11 07:10] LABS: CALC OSMOLALITY 277 mosm/kg (275-300); CALCIUM 8.5 mg/dL (8.5-10.1); CARBON DIOXIDE 23.7 mmol/L (21.0-32.0); CHLORIDE - SERUM 105 mmol/L (98-107); CREATININE - SERUM 0.7 mg/dL (0.6-1.3); GLUCOSE 108 mg/dL (74-106); POTASSIUM - SERUM 4.3 mmol/L (3.5-5.1); SODIUM 138 mmol/L (136-145); UREA NITROGEN 15 mg/dL (7-18); eGFR NON AFRICAN AMERICAN > 90 mL/min (90-120)
[2018-03-11 08:03] LABS: HEMOGLOBIN 9.9 g/dL (13.5-17.5); MCH 28.9 pg (26.0-34.0); MCV 87.7 fL (80.0-100.0); MEAN PLATELET VOLUME 9.5 fL (7.4-10.4); RBC 3.42 10x6/uL (4.20-6.10); RDW 14.2 % (11.5-14.5); WBC 11.4 10x3/uL (4.8-10.8)
[2018-03-12] VITALS (24 sets, daily range): BP systolic 101–125; BP diastolic 70–85
[2018-03-12 06:19] LABS: HEMATOCRIT 30.5 % (42.0-54.0); HEMOGLOBIN 10.1 g/dL (13.5-17.5); MCH 29.2 pg (26.0-34.0); MCHC 33.1 g/dL (31.0-37.0); MCV 88.2 fL (80.0-100.0); MEAN PLATELET VOLUME 9.4 fL (7.4-10.4); RBC 3.46 10x6/uL (4.20-6.10); RDW 13.9 % (11.5-14.5); WBC 12.2 10x3/uL (4.8-10.8)
[2018-03-12 06:44] LABS: CALCIUM 8.4 mg/dL (8.5-10.1); CARBON DIOXIDE 24.8 mmol/L (21.0-32.0); CHLORIDE - SERUM 103 mmol/L (98-107); GLUCOSE 98 mg/dL (74-106); POTASSIUM - SERUM 4.3 mmol/L (3.5-5.1); SODIUM 137 mmol/L (136-145)
[2018-03-12 06:48] LABS: CALC OSMOLALITY 276 mosm/kg (275-300); CREATININE - SERUM 0.9 mg/dL (0.6-1.3); UREA NITROGEN 20 mg/dL (7-18); eGFR NON AFRICAN AMERICAN > 90 mL/min (90-120)
[2018-03-13] VITALS (24 sets, daily range): BP systolic 89–108; BP diastolic 52–79; Ht 175.3 cm; Wt 71.4 kg
[2018-03-13 06:37] LABS: HEMATOCRIT 33.2 % (42.0-54.0); MCH 29.2 pg (26.0-34.0); MCHC 33.1 g/dL (31.0-37.0); MCV 88.1 fL (80.0-100.0); MEAN PLATELET VOLUME 9.3 fL (7.4-10.4); PLATELET COUNT 440 10x3/uL (130-400); RBC 3.77 10x6/uL (4.20-6.10)
[2018-03-13 06:42] LABS: WBC 8.2 10x3/uL (4.8-10.8)
[2018-03-13 06:48] LABS: CALC OSMOLALITY 275 mosm/kg (275-300); CALCIUM 8.7 mg/dL (8.5-10.1); CARBON DIOXIDE 25.3 mmol/L (21.0-32.0); CHLORIDE - SERUM 102 mmol/L (98-107); CREATININE - SERUM 0.7 mg/dL (0.6-1.3); GLUCOSE 137 mg/dL (74-106); POTASSIUM - SERUM 4.5 mmol/L (3.5-5.1); SODIUM 136 mmol/L (136-145); UREA NITROGEN 19 mg/dL (7-18); eGFR NON AFRICAN AMERICAN > 90 mL/min (90-120)
[2018-03-13 08:52] LABS: BASOPHILS 0.1 % (0-2); EOSINOPHILS 0 % (0-7); LYMPHOCYTES 6.9 % (15-50); MONOCYTES 1.8 % (2-11); NEUTROPHILS 90.2 % (40-80)
[2018-03-14] VITALS (16 sets, daily range): BP systolic 85–104; BP diastolic 51–65
[2018-03-14 06:36] LABS: HEMATOCRIT 29.9 % (42.0-54.0); HEMOGLOBIN 9.8 g/dL (13.5-17.5); MCH 29.3 pg (26.0-34.0); MCHC 32.8 g/dL (31.0-37.0); MCV 89.3 fL (80.0-100.0); MEAN PLATELET VOLUME 8.8 fL (7.4-10.4); RBC 3.35 10x6/uL (4.20-6.10); RDW 14.2 % (11.5-14.5); WBC 10.4 10x3/uL (4.8-10.8)
[2018-03-14 06:43] LABS: CARBON DIOXIDE 27.4 mmol/L (21.0-32.0); CHLORIDE - SERUM 105 mmol/L (98-107); GLUCOSE 101 mg/dL (74-106); SODIUM 139 mmol/L (136-145)
[2018-03-14 06:44] LABS: CALC OSMOLALITY 281 mosm/kg (275-300); CREATININE - SERUM 0.9 mg/dL (0.6-1.3); POTASSIUM - SERUM 3.6 mmol/L (3.5-5.1); UREA NITROGEN 25 mg/dL (7-18); eGFR NON AFRICAN AMERICAN > 90 mL/min (90-120)
[2018-03-14] MEDS ORDERED: HEMOCYTE PLUS C1 CAP PO (13:10)
[2018-03-14] MEDS ORDERED: XARELTO15 MG PO (13:10)
[2018-03-14] MEDS ORDERED: CORDARONE200 MG PO ×2 (13:22→13:24)
[2018-03-14] MEDS ORDERED: ASPIRIN81 MG PO (13:25)
[2018-03-14] MEDS ORDERED: CARDIZEM CD120 MG PO (13:25)
[2018-03-14] MEDS ORDERED: LASIX20 MG PO (13:26)
[2018-03-14] MEDS ORDERED: K-TAB10 MEQ PO (13:33)
== END 2018-03-14 15:35 | disposition home or self-care (01) | DRG 219 ==
LOC: D.CVICU 05:00 → D.SDCHOLD 05:00 → D.CVICU 10:41
PROVIDERS: Internal Medicine Cardiovascular Disease; Thoracic Surgery (Cardiothoracic Vascular Surgery)
PROC: 5A1221Z Performance of Cardiac Output, Continuous (ICD-10-PCS; 2018-03-05)
PROC: B24BZZ4 Ultrasonography of Heart with Aorta, Transesophageal (ICD-10-PCS; 2018-03-05)
PROC: 02BG0ZZ Excision of Mitral Valve, Open Approach (ICD-10-PCS; 2018-03-05)
PROC: 02UG0JZ Supplement Mitral Valve with Synthetic Substitute, Open Approach (ICD-10-PCS; principal; 2018-03-05 07:30)
DX: I34.0 Nonrheumatic mitral (valve) insufficiency (principal); I50.31 Acute diastolic (congestive) heart failure; D62 Acute posthemorrhagic anemia; I42.0 Dilated cardiomyopathy; I48.0 Paroxysmal atrial fibrillation

== ENCOUNTER → 2018-03-22 13:50 | Outpatient (CLI) | payer BC ==
[2018-03-13 10:15] VITALS: BMI 22.6
[~2018-03-22 13:50] MED LIST changes: +ASPIRIN81 MG PO; +CARDIZEM CD120 MG PO; +CORDARONE200 MG PO; +HEMOCYTE PLUS C1 CAP PO; +K-TAB10 MEQ PO; +LASIX20 MG PO; +XARELTO15 MG PO; +[UNRECOGNIZED DRUG - OTHER]
[2018-03-22 14:34] LABS: HEMATOCRIT 36.6 % (42.0-54.0); MCH 28.9 pg (26.0-34.0); MCHC 32.8 g/dL (31.0-37.0); MCV 88.2 fL (80.0-100.0); MEAN PLATELET VOLUME 8.3 fL (7.4-10.4); PLATELET COUNT 505 10x3/uL (130-400); RBC 4.15 10x6/uL (4.20-6.10); RDW 13.8 % (11.5-14.5); WBC 6.4 10x3/uL (4.8-10.8)
[2018-03-22 15:22] LABS: ALBUMIN 3.5 g/dL (3.4-5.0); ALKALINE PHOSPHATASE 106 U/L (46-116); ALT (SGPT) 97 U/L (10-68); BILIRUBIN - TOTAL 0.48 mg/dL (0.2-1.3); CALC OSMOLALITY 271 mosm/kg (275-300); CALCIUM 8.5 mg/dL (8.5-10.1); CARBON DIOXIDE 28.1 mmol/L (21.0-32.0); CHLORIDE - SERUM 98 mmol/L (98-107); CREATININE - SERUM 0.9 mg/dL (0.6-1.3); GLUCOSE 101 mg/dL (74-106); POTASSIUM - SERUM 4.2 mmol/L (3.5-5.1); PROTEIN - SERUM 6.9 g/dL (6.4-8.2); SODIUM 136 mmol/L (136-145); UREA NITROGEN 13 mg/dL (7-18); eGFR NON AFRICAN AMERICAN > 90 mL/min (90-120)
[2018-03-22 16:57] LABS: EOSINOPHILS 2 % (0-7); LYMPHOCYTES 28 % (15-50); NEUTROPHILS 70 % (40-80); PLATELET ESTIMATE INCREASED
== END | disposition home or self-care (01) ==
LOC: D.LAB 13:50
PROVIDERS: Thoracic Surgery (Cardiothoracic Vascular Surgery)
DX: I25.10 Atherosclerotic heart disease of native coronary artery without angina pectoris (principal); J90 Pleural effusion, not elsewhere classified; D64.9 Anemia, unspecified

== ENCOUNTER → 2018-04-01 10:28 | Outpatient (CLI) | payer BC ==
[2018-03-13 10:15] VITALS: BMI 22.6
--- NOTE | ~2018-04-01 | EC ---
PATIENT:CAMMIE SUAREZ DATE OF SERVICE: 04/01/18 SEX: M MEDICAL RECORD: [id number] DATE OF : 68 [facility] AGE OF PATIENT: 48 ADMISSION DATE: 04/01/18 REFERRING PHYSICIAN: INTERPRETING PHYSICIAN: RAYO GOSS MD ECHOCARDIOGRAM REPORT ECHO CHARGES 4 ECHO COMPLETE Date: 04/01 CLINICAL DIAGNOSIS: RECENT MITRAL VALVE REPAIR, MR ECHOCARDIOGRAPHIC MEASUREMENTS (adult normal given) AC root (d.<3.7cm) 3.6 cm LV Septum d (<1.2 cm> 1.3 cm Valve Excursion 1.5 cm LV Septum (systole) 1.4 cm Left Atria (s.<4.0cm> 4.7 cm LVPW d(<1.2cm) 1.2 cm RV (d.<2.3cm) 4.4 cm LVPW (sytole) 1.9 cm LV diastole(<5.6CM) 69.5 cm MV E-F(>70mm/sec) cm LV systole 4.2 cm LVOT Diameter 1.9 cm MV exc.(>10mm) 2.3 cm Est.ejection fraction (50-75%) % DOPPLER: LVIT cm/sec A 76.0 cm/sec E 194 cm/sec LA cm/sec RVSP 18 mmHg LVOT 77 cm/sec AOP1/2T m/s Asc. Ao 136 cm/sec RVOT 79 cm/sec RA cm/sec PA 127 cm/sec AV Gradient Peak 7.42 mmHg AV Mean 3.37 mmHg AV Area 1.3 cm MV Gradient Peak 26.83mmHg MV Mean 10.28mmHg MV Area cm COMMENTS: Byproducts Supervisor: Daniel WYNN Naturopath: Shannon Goss TAPE# PACS Pericardial Effusion N DATE OF SERVICE: PROCEDURE: Transthoracic echocardiogram. FINDINGS: 1. Left ventricle is moderately dilated. Ejection fraction is 40% to 45% with mild global hypokinesis. Inflow characteristics show grade III diastolic dysfunction. 2. The left atrium is moderate to severely dilated. 3. The aortic valve is normal. ECHOCARDIOGRAM REPORT [id number] CAMMIE SUAREZ 4. Mitral valve has moderate to moderately severe regurgitation. There is considerable area of proximal flow convergence. The regurgitation is anteriorly directed. 5. Tricuspid valve is normal. The RVSP was difficult to visualize, but appears to be normal. 6. The right ventricle is moderately dilated. 7. The right atrium is mildly dilated. 8. The pulmonic valve is normal. CONCLUSIONS: The patient appears to have had a mitral valve repair. There is moderate to moderate severe mitral regurgitation. There is moderate dilatation of the left atrium. Mild reduction in the overall left ventricular systolic function. TRANSINT:[id number] Voice Confirmation ID: [id number] DOCUMENT ID: [id number] RAYO GOSS MD at 1030 CC: [id number] DICTATION DATE: 04/02/18 1144 CRYOGENICS REPAIRER: 04/02/18 1202 DEP CLI 04/01/18 [place] [address] [place] [address]
[2018-04-01 11:58] LABS: HEMATOCRIT 35.9 % (42.0-54.0); HEMOGLOBIN 11.4 g/dL (13.5-17.5); MCH 27.9 pg (26.0-34.0); MCHC 31.8 g/dL (31.0-37.0); MEAN PLATELET VOLUME 8.8 fL (7.4-10.4); RBC 4.08 10x6/uL (4.20-6.10); RDW 13.3 % (11.5-14.5); WBC 7.2 10x3/uL (4.8-10.8)
[2018-04-01 12:26] LABS: CALC OSMOLALITY 276 mosm/kg (275-300); CALCIUM 9.1 mg/dL (8.5-10.1); CARBON DIOXIDE 28.5 mmol/L (21.0-32.0); CHLORIDE - SERUM 102 mmol/L (98-107); CREATININE - SERUM 0.7 mg/dL (0.6-1.3); GLUCOSE 101 mg/dL (74-106); POTASSIUM - SERUM 4.7 mmol/L (3.5-5.1); SODIUM 138 mmol/L (136-145); UREA NITROGEN 14 mg/dL (7-18); eGFR NON AFRICAN AMERICAN > 90 mL/min (90-120)
[2018-04-01 12:37] LABS: INR 2.37 (0.85-1.17); PROTIME 25.3 SECONDS (11.6-15.0)
== END | disposition home or self-care (01) ==
LOC: D.ECHO 10:28
PROVIDERS: Thoracic Surgery (Cardiothoracic Vascular Surgery)
DX: J90 Pleural effusion, not elsewhere classified (principal); D64.9 Anemia, unspecified; I34.0 Nonrheumatic mitral (valve) insufficiency

== ENCOUNTER → 2018-06-17 09:14 | Outpatient (CLI) | payer BC ==
[2018-03-13 10:15] VITALS: BMI 22.6
== END | disposition home or self-care (01) ==
LOC: D.RAD 09:14
DX: R06.02 Shortness of breath (principal)

== ENCOUNTER → 2018-06-29 17:17 | Outpatient (CLI) | payer BC ==
[2018-03-13 10:15] VITALS: BMI 22.6
[~2018-06-29 17:17] MED LIST changes: +ULTRAM50 MG PO
[2018-06-29 19:24] LABS: CALC OSMOLALITY 286 mosm/kg (275-300); CALCIUM 8.4 mg/dL (8.5-10.1); CHLORIDE - SERUM 106 mmol/L (98-107); CREATININE - SERUM 1.1 mg/dL (0.6-1.3); GLUCOSE 112 mg/dL (74-106); POTASSIUM - SERUM 4.7 mmol/L (3.5-5.1); SODIUM 141 mmol/L (136-145); UREA NITROGEN 26 mg/dL (7-18); eGFR NON AFRICAN AMERICAN 75 mL/min (90-120)
== END | disposition home or self-care (01) ==
LOC: D.LABREF 17:17
PROVIDERS: Internal Medicine Cardiovascular Disease
DX: R06.00 Dyspnea, unspecified (principal)

== ENCOUNTER 2018-07-02 13:34 | Emergency (ER) | payer BC ==
[~2018-07-02] VITALS: Ht 175.3 cm; Wt 61.4 kg
[~2018-07-02 13:34] MED LIST changes: -ULTRAM50 MG PO
[2018-07-02 13:36] VITALS: Ht 175.3 cm; Wt 61.4 kg
[2018-07-02] MEDS ORDERED: ULTRAM50 MG PO (15:33)
[2018-07-02 15:53] VITALS: BP 106/75
== END 2018-07-02 15:54 | disposition home or self-care (01) ==
LOC: D.ER 13:34
DX: M54.5 Low back pain (principal)

== ENCOUNTER 2018-07-06 10:55 | Emergency (ER) | payer BC ==
[~2018-07-06] VITALS: Ht 175.3 cm; Wt 61.4 kg
[~2018-07-06 10:55] MED LIST changes: +ULTRAM50 MG PO
[2018-07-06 10:58] VITALS: Ht 175.3 cm; Wt 61.4 kg
[2018-07-06 12:19] LABS: INR 3.12 (0.85-1.17); PROTIME 31.4 SECONDS (11.6-15.0)
[2018-07-06 12:20] LABS: APTT 44.3 SECONDS (22.8-39.4)
[2018-07-06 12:22] LABS: BASOPHILS 0.5 % (0-2); EOSINOPHILS 0.8 % (0-7); HEMATOCRIT 30.9 % (42.0-54.0); HEMOGLOBIN 9.9 g/dL (13.5-17.5); IMMATURE GRANULOCYTES 0.2 % (0-5); LYMPHOCYTES 18.8 % (15-50); MCH 25.5 pg (26.0-34.0); MCV 79.6 fL (80.0-100.0); MEAN PLATELET VOLUME 10.1 fL (7.4-10.4); MONOCYTES 6.7 % (2-11); RBC 3.88 10x6/uL (4.20-6.10); RDW 13.7 % (11.5-14.5)
[2018-07-06 12:28] LABS: PLATELET COUNT 319 10x3/uL (130-400)
[2018-07-06 12:35] LABS: ALBUMIN 3.7 g/dL (3.4-5.0); ALKALINE PHOSPHATASE 69 U/L (46-116); ALT (SGPT) 50 U/L (10-68); BILIRUBIN - TOTAL 1.14 mg/dL (0.2-1.3); CALC OSMOLALITY 272 mosm/kg (275-300); CALCIUM 8.2 mg/dL (8.5-10.1); CARBON DIOXIDE 22.2 mmol/L (21.0-32.0); CHLORIDE - SERUM 103 mmol/L (98-107); CREATININE - SERUM 0.9 mg/dL (0.6-1.3); GLUCOSE 93 mg/dL (74-106); POTASSIUM - SERUM 4.4 mmol/L (3.5-5.1); PROTEIN - SERUM 6.6 g/dL (6.4-8.2); SODIUM 134 mmol/L (136-145); UREA NITROGEN 26 mg/dL (7-18); eGFR NON AFRICAN AMERICAN > 90 mL/min (90-120)
[2018-07-06 12:47] LABS: CKMB 1.8 U/L (0.0-3.6); CREATINE KINASE 211 UL (21-232); TROPONIN-I < 0.017 ng/mL (0.000-0.060)
[2018-07-06 12:49] LABS: D-DIMER-QUANTITATIVE 1.22 ug/mLFEU (0.20-0.54)
[2018-07-06 15:00] VITALS: BP 118/86
== END 2018-07-06 18:28 | disposition home or self-care (01) ==
LOC: D.ER 10:55
PROVIDERS: Family Medicine
DX: R07.9 Chest pain, unspecified (principal); R55 Syncope and collapse; R06.00 Dyspnea, unspecified

== ENCOUNTER → 2018-07-14 12:14 | Outpatient (CLI) | payer BC ==
[2018-07-06 10:58] VITALS: BMI 19.9
--- NOTE | ~2018-07-14 | EC ---
PATIENT:CAMMIE SUAREZ DATE OF SERVICE: 07/14/18 SEX: M MEDICAL RECORD: [id number] DATE OF : 68 LOCATION:[facility] AGE OF PATIENT: 48 ADMISSION DATE: 07/14/18 REFERRING PHYSICIAN: INTERPRETING PHYSICIAN: RAYO GOSS MD ECHOCARDIOGRAM REPORT ECHO CHARGES 4 ECHO COMPLETE Date: 07/14/18 CLINICAL DIAGNOSIS: DYSPNEA/CARDIOMYOPATHY/CHF/ MV REPAIR ECHOCARDIOGRAPHIC MEASUREMENTS (adult normal given) AC root (d.<3.7cm) 3.1 cm LV Septum d (<1.2 cm> 0.9 cm Valve Excursion 2.2 cm LV Septum (systole) 1.3 cm Left Atria (s.<4.0cm> 4.2 cm LVPW d(<1.2cm) 1.0 cm RV (d.<2.3cm) 2.4 cm LVPW (sytole) 1.4 cm LV diastole(<5.6CM) 6.9 cm MV E-F(>70mm/sec) cm LV systole 5.0 cm LVOT Diameter 1.9 cm MV exc.(>10mm) cm Est.ejection fraction (50-75%) % DOPPLER: LVIT cm/sec A 49.0 cm/sec E 202 cm/sec LA cm/sec RVSP 40.0 mmHg LVOT 67.0 cm/sec AOP1/2T m/s Asc. Ao 123 cm/sec RVOT 59.0 cm/sec RA cm/sec PA 81.0 cm/sec AV Gradient Peak 6.1 mmHg AV Mean 2.8 mmHg AV Area 1.2 cm MV Gradient Peak 25.0 mmHg MV Mean 6.9 mmHg MV Area cm COMMENTS: Forklift Driver: Moiz ANDERSON CAROLYN Rehab Therapy Manager: 4 Dr. Goss TAPE# PACS Pericardial Effusion N DATE OF SERVICE: PROCEDURE: Transthoracic echocardiogram. FINDINGS: 1. Left ventricle is severely dilated, ejection fraction of 25% to 30%. 2. Left atrium is severely dilated. 3. The aortic valve is normal. 4. The mitral valve shows severe mitral valve regurgitation anteriorly directed, status post mitral valve repair. ECHOCARDIOGRAM REPORT [id number] CAMMIE SUAREZ 5. The tricuspid valve has mild tricuspid regurgitation. 6. Right ventricle is mildly dilated. 7. The right atrium is mildly dilated. 8. Pulmonic valve is normal. 9. There is no pericardial effusion. 10. Inflow characteristics into the left ventricle show restrictive filling pattern. IMPRESSION: The patient has a severe valvular dilated cardiomyopathy with severe mitral regurgitation, status post mitral valve repair. TRANSINT:[id number] Voice Confirmation ID: [id number] DOCUMENT ID: [id number] RAYO GOSS MD at 2344 CC: [id number] DICTATION DATE: 07/15/18811 SPLASH LINE OPERATOR: 07/15/18821 DEP CLI 07/14/18 [place] [address] [place] [address]
[~2018-07-14 12:14] MED LIST changes: +COLACE100 MG PO; +COUMADIN5 MG PO; +ENTRESTO 24 MG1 EACH PO; +PERCOCET 5-3251 TAB PO; +XARELTO15 MG
== END | disposition home or self-care (01) ==
LOC: D.ECHO 12:14
DX: I42.9 Cardiomyopathy, unspecified (principal); I50.9 Heart failure, unspecified; Z95.2 Presence of prosthetic heart valve

== ENCOUNTER 2018-07-27 10:11 | Inpatient (IN) | payer BC ==
[~2018-07-27] VITALS: Ht 175.3 cm; Wt 60.0 kg
--- NOTE | ~2018-07-27 | EC ---
PATIENT:CAMMIE SUAREZ DATE OF SERVICE: 07/27/18 SEX: M MEDICAL RECORD: [id number] DATE OF : 68 LOCATION:[place] [address] AGE OF PATIENT: 48 ADMISSION DATE: 07/27/18 REFERRING PHYSICIAN: INTERPRETING PHYSICIAN: ADELITA DALY MD ECHOCARDIOGRAM REPORT ECHO CHARGES 5 ECHO LIMITED Date: 08/05/18 CLINICAL DIAGNOSIS: POST MVR, ASSESS EF ECHOCARDIOGRAPHIC MEASUREMENTS (adult normal given) AC root (d.<3.7cm) cm LV Septum d (<1.2 cm> cm Valve Excursion cm LV Septum (systole) cm Left Atria (s.<4.0cm> cm LVPW d(<1.2cm) cm RV (d.<2.3cm) cm LVPW (sytole) cm LV diastole(<5.6CM) cm MV E-F(>70mm/sec) cm LV systole cm LVOT Diameter cm MV exc.(>10mm) cm Est.ejection fraction (50-75%) % DOPPLER: LVIT cm/sec A cm/sec E cm/sec LA cm/sec RVSP mmHg LVOT cm/sec AOP1/2T m/s Asc. Ao cm/sec RVOT cm/sec RA cm/sec PA cm/sec AV Gradient Peak mmHg AV Mean mmHg AV Area cm MV Gradient Peak mmHg MV Mean mmHg MV Area cm COMMENTS: DR. SOUZA PATIENT [employer] Professional: 2 PIYUSH WYNN Communications Programmer: 4 Dr. Sommers TAPE# PACS Pericardial Effusion N DATE OF SERVICE: 08/05/2018 PROCEDURE: Limited echo for ejection fraction. FINDINGS: Left ventricular chamber size is within normal limits. Left ventricular systolic function is normal. Overall ejection fraction estimated at 50%. TRANSINT:[id number] Voice Confirmation ID: [id number] DOCUMENT ID: [id number] ECHOCARDIOGRAM REPORT [id number] ERICKCAMMIE LI ADELITA TAYLOR MD at 1059 CC: [id number] DICTATION DATE: 08/06/18 1223 METALS ANALYST: 08/06/18 1230 DIS IN 08/10/18 [place] [address]
--- NOTE | ~2018-07-27 | MORECARE ---
CASE MANAGEMENT DISCHARGE SUMMARY PATIENT: CAMMIE SUAREZ UNIT: [id number] ADM DATE: 07/27/18 AGE: 48 : 68 SEX: M ROOM/BED: [facility] AUTHOR: ANDREI WARD PHYSICIAN: REFERRING PHYSICIAN: KALEN SOUZA MD DATE OF SERVICE: 08/10/18 Discharge Plan Patient Name: CAMMIE SUAREZ Facility: [facility]:[place] : 1970 Planned Disposition: Home Anticipated Discharge Date: Discharge Date: 08/10/2018 Expected LOS: Initial Reviewer: [email or web address] Initial Review Date: 08/04/2018 Generated: 08/10/18 6:12 pm Comments DCP- Discharge Planning Updated by [email or web address]: Perla Florence on 08/10/18 4:[address] LATE ENTRY 08/10/18 0930 -14:30 CM was notified that patient needed home health for PT/INR weekly starting 08/12/18. CM spoke with patient and GHAZALA signed for [facility]. CM called and spoke with Shama with [employer] and faxed over records. CM awaited for approval with insurance for [employer]. While awaiting for approval Dr. Souza came and spoke with patient and he stated that he would have transportation for lab on and Thursday of next week. CM called and canceled [facility] and apologized for the inconvenience. CM will continue to follow and assist with discharge planning / needs. DCP- Discharge Planning Updated by [email or web address]: Perla Florence on 08/05/18 8:[address] Late Entry 08/04/18 @ 1000 Patient Name: CAMMIE SUAREZ Admission Status: ER Accout number: [id number] Admission Date: 07-27-2018 : 1970 Admission Diagnosis:SHORTNESS OF BREATH Attending: KALEN SOUZA Current LOS: 9 Anticipated DC Date: Planned Disposition: Home Primary Insurance: [employer] [facility] Discharge Planning Comments: CM met with patient at bedside after obtaining verbal consent. Patient states he plans on returning home after discharge with his mother and grandmother. Patient states he will have family transport him home via private vehicle. Patient denies any discharge needs at this time. CM will continue to follow and assist as needed for discharge planning / needs. Rehab Assistant: Perla Florence DCPIA - Discharge Planning Initial Assessment Updated by [email or web address]: Perla Florence on 08/05/18 8:22 pm * Is the patient Alert and Oriented? Yes * How many steps to enter\exit or inside your home? * PCP Traci or Faisal * [facility] * Preadmission Environment Home with Family * ADLs Independent * Equipment Shower Chair * List name and contact numbers for known caregivers / representatives who currently or will assist patient after discharge: Danita Crawford Grandmother - [phone] * Verbal permission to speak to the caregivers and representatives has been obtained from the patient. Yes * Community resources currently utilized None * Additional services required to return to the preadmission environment? No * Can the patient safely return to the preadmission environment? Yes * Has this patient been hospitalized within the prior 30 days at any hospital? No Last DP export: 08/10/18 12:00 p Patient Name: CAMMIE SUAREZ Page 31055 at 1712 All edits/amendments must be made on the electronic document DICTATION DATE: 08/10/181711 HEALTH CARE LAW SPECIALIST: KAREN 08/10/181711 RPT#: [id number] DC DATE:08/10/18 STATUS: DIS IN [facility] [address] [place] [address] END OF REPORT
--- NOTE | ~2018-07-27 | MORECARE ---
CASE MANAGEMENT DISCHARGE SUMMARY PATIENT: CAMMIE SUAREZ UNIT: [id number] ADM DATE: 07/27/18 AGE: 48 : 68 SEX: M ROOM/BED: [facility] AUTHOR: ANDREI WARD PHYSICIAN: REFERRING PHYSICIAN: KALEN SOUZA MD DATE OF SERVICE: 08/10/18 Discharge Plan Patient Name: CAMMIE SUAREZ Facility: [facility]:[place] : 1970 Planned Disposition: Home Anticipated Discharge Date: Discharge Date: Expected LOS: Initial Reviewer: [email or web address] Initial Review Date: 08/04/2018 Generated: 08/10/18 2:00 pm Comments DCP- Discharge Planning Updated by [email or web address]: Perla Florence on 08/05/18 8:[address] Late Entry 08/04/18 @ 1000 Patient Name: CAMMIE SUAREZ Admission Status: ER Accout number: [id number] Admission Date: 07-27-2018 : 1970 Admission Diagnosis:SHORTNESS OF BREATH Attending: KALEN SOUZA Current LOS: 9 Anticipated DC Date: Planned Disposition: Home Primary Insurance: [employer] [facility] Discharge Planning Comments: CM met with patient at bedside after obtaining verbal consent. Patient states he plans on returning home after discharge with his mother and grandmother. Patient states he will have family transport him home via private vehicle. Patient denies any discharge needs at this time. CM will continue to follow and assist as needed for discharge planning / needs. Bulk Truck Driver: Perla Florence DCPIA - Discharge Planning Initial Assessment Updated by [email or web address]: Perla Florence on 08/05/18 8:22 pm * Is the patient Alert and Oriented? Yes * How many steps to enter\exit or inside your home? * PCP Traci or Faisal * [facility] * Preadmission Environment Home with Family * ADLs Independent * Equipment Shower Chair * List name and contact numbers for known caregivers / representatives who currently or will assist patient after discharge: Danita Crawford - Grandmother - [phone] * Verbal permission to speak to the caregivers and representatives has been obtained from the patient. Yes * Community resources currently utilized None * Additional services required to return to the preadmission environment? No * Can the patient safely return to the preadmission environment? Yes * Has this patient been hospitalized within the prior 30 days at any hospital? No External Providers External [facility] Next Contact Date: Service Request Date: Service Type: Resolution: Reviewer: Comments: Last DP export: 08/05/18 8:30 p Patient Name: CAMMIE SUAREZ Page 54123 at 1300 All edits/amendments must be made on the electronic document DICTATION DATE: 08/10/18 1300 NATIONAL FACILITIES MANAGER: KAREN 08/10/18 1300 RPT#: [id number] DC DATE: STATUS: ADM IN [facility] [address] [place] [address] END OF REPORT
--- NOTE | ~2018-07-27 | EC ---
PATIENT:CAMMIE SUAREZ DATE OF SERVICE: 07/27/18 SEX: M MEDICAL RECORD: [id number] DATE OF : [birth year] LOCATION:[place] [address] AGE OF PATIENT: 48 ADMISSION DATE: 07/27/18 REFERRING PHYSICIAN: INTERPRETING PHYSICIAN: RAYO GOSS MD ECHOCARDIOGRAM REPORT ECHO CHARGES 5 ECHO LIMITED Date: 08/01/18 CLINICAL DIAGNOSIS: R/O PERICARDIAL EFFUSION ECHOCARDIOGRAPHIC MEASUREMENTS (adult normal given) AC root (d.<3.7cm) cm LV Septum d (<1.2 cm> cm Valve Excursion cm LV Septum (systole) cm Left Atria (s.<4.0cm> cm LVPW d(<1.2cm) cm RV (d.<2.3cm) cm LVPW (sytole) cm LV diastole(<5.6CM) cm MV E-F(>70mm/sec) cm LV systole cm LVOT Diameter cm MV exc.(>10mm) cm Est.ejection fraction (50-75%) % DOPPLER: LVIT cm/sec A cm/sec E cm/sec LA cm/sec RVSP mmHg LVOT cm/sec AOP1/2T m/s Asc. Ao cm/sec RVOT cm/sec RA cm/sec PA cm/sec AV Gradient Peak mmHg AV Mean mmHg AV Area cm MV Gradient Peak mmHg MV Mean mmHg MV Area cm COMMENTS: DR. SOUZA PATIENT Public Affairs Manager: 5 [facility] Education And Outreach Coordinator: 4 Dr. Goss TAPE# PACS Pericardial Effusion Y DATE OF SERVICE: PROCEDURE: Transthoracic echocardiogram to rule out pericardial effusion status post mitral valve replacement. INDICATION: The patient underwent a limited transthoracic echocardiogram, which did not demonstrate any evidence of significant pericardial effusion. The patient's ejection fraction was around 30%. There is dyskinesis in the septal wall. ECHOCARDIOGRAM REPORT [id number] CAMMIE SUAREZ IMPRESSION: The patient is status post mitral valve replacement. The patient has what appears to be adequate valvular function on the mechanical mitral valve. There is no significant mitral regurgitation or perivalvular leak. There is no significant pericardial effusion. There is a dilated cardiomyopathy with ejection fraction around 30% with septal dyskinesis. TRANSINT:[id number] Voice Confirmation ID: [id number] DOCUMENT ID: [id number] RAYO GOSS MD at 0916 CC: [id number] DICTATION DATE: 08/02/18 0538 CABLE MACHINE OPERATOR: 08/02/18 0735 DIS IN 08/10/18 [place] [address] [place] [address]
--- NOTE | ~2018-07-27 | OP ---
PATIENT NAME: CAMMIE SUAREZ MEDICAL RECORD: [id number] :[birth year] LOCATION:[facility] ADMISSION DATE:07/27/18 SURGEON: MIKE SOUZA MD DATE OF OPERATION: 08/09/2018 SURGEON: Mike Souza MD SCENIC ARTS SUPERVISOR: SHORTY Angel OPERATION PERFORMED: Insertion of ICD with atrial and ventricular leads. PREOPERATIVE DIAGNOSIS: Ventricular dysrhythmias. POSTOPERATIVE DIAGNOSIS: Ventricular dysrhythmias. ANESTHESIA: Monitored anesthesia care and 15 cc of 1% local Xylocaine without epinephrine. SPECIMENS: None. BLOOD LOSS: Minimal. CONDITION: Stable. DISPOSITION: CV ICU. OPERATIVE FINDINGS: Good sensing and pacing thresholds in both leads. Defibrillation was not checked. INDICATION: Lethal ventricular dysrhythmias. OPERATIVE PROCEDURE IN DETAIL: The patient was brought to the operating suite. Monitored anesthesia care including intravenous sedation was given. The chest was sterilely prepped and draped. A 1% Xylocaine was used along the left anterior chest just below the clavicle. Incision was made. Subcutaneous pocket was created. The subclavian vein was cannulated twice. Guidewire was passed using fluoroscopy control. Then, 2 separate introducers were placed. The larger ventricular lead was placed to the apex and screwed in. Good pacing and sensing thresholds were noted. Suture sleeve was used to secure the lead. Then, the atrial lead was attached using a J-wire. The initial spot did not hold; therefore, it was attached more laterally, where good pacing and sensing thresholds were identified. J-wire was carefully removed. The lead was again rechecked and in good position. Suture sleeve was used to place the lead and secure it and then a pursestring suture was placed around the leads to prevent backbleeding from the subclavian in a patient on anticoagulation. The pocket was irrigated with antibiotic solution. The leads were carefully connected to the ICD generator and screwed down. They were tight to the tug test. The leads were carefully coiled behind the pacemaker/ICD generator and placed within the pocket. The generator was secured with a single suture. Fluoroscopy confirmed that the generator and leads were in good position and again they were tested remotely including pacing at 5 volts with no diaphragmatic stimulation. Wound was closed in 3 layers including Dermabond on the skin. The patient to ICU in stable condition. TRANSINT:[id number] Voice Confirmation ID: [id number] DOCUMENT ID: [id number] OPERATIVE REPORT [id number] CAMMIE SUAREZ, MIKE Norton MD at 1147 CC: RAYO GOSS MD [id number] DICTATION DATE: 08/09/18 1352 CORPORATE EXECUTIVE: 08/09/18 1541 ADM IN [place] [id number] [place] [id number]
--- NOTE | ~2018-07-27 | MORECARE ---
CASE MANAGEMENT DISCHARGE SUMMARY PATIENT: CAMMIE SUAREZ UNIT: [id number] ADM DATE: 07/27/18 AGE: 48 : [birth year] SEX: M ROOM/BED: [facility] AUTHOR: ANDREI WARD PHYSICIAN: REFERRING PHYSICIAN: KALEN SOUZA MD DATE OF SERVICE: 08/10/18 Discharge Plan Patient Name: CAMMIE SUAREZ Facility: [facility]:[place] : 1970 Planned Disposition: Home Anticipated Discharge Date: Discharge Date: 08/10/2018 Expected LOS: Initial Reviewer: [email or web address] Initial Review Date: 08/04/2018 Generated: 08/10/18 6:20 pm Comments DCP- Discharge Planning Updated by [email or web address]: Perla Florence on 08/10/18 4:[address] LATE ENTRY 08/10/18 0930 -14:30 CM was notified that patient needed home health for PT/INR weekly starting 08/12/18. CM spoke with patient and GHAZALA signed for [facility]. CM called and spoke with Shama with [employer] and faxed over records. CM awaited for approval with insurance for [employer]. While awaiting for approval Dr. Souza came and spoke with patient and he stated that he would have transportation for lab on and Thursday of next week. CM called and canceled [facility] and apologized for the inconvenience. CM will continue to follow and assist with discharge planning / needs. DCP- Discharge Planning Updated by [email or web address]: Perla Florence on 08/05/18 8:[address] Late Entry 08/04/18 @ 1000 Patient Name: CAMMIE SUAREZ Admission Status: ER Accout number: [id number] Admission Date: 07-27-2018 : 1970 Admission Diagnosis:SHORTNESS OF BREATH Attending: KALEN SOUZA Current LOS: 9 Anticipated DC Date: Planned Disposition: Home Primary Insurance: [employer] [facility] Discharge Planning Comments: CM met with patient at bedside after obtaining verbal consent. Patient states he plans on returning home after discharge with his mother and grandmother. Patient states he will have family transport him home via private vehicle. Patient denies any discharge needs at this time. CM will continue to follow and assist as needed for discharge planning / needs. Manager Client: Perla Florence DCPIA - Discharge Planning Initial Assessment Updated by [email or web address]: Perla Florence on 08/05/18 8:22 pm * Is the patient Alert and Oriented? Yes * How many steps to enter\exit or inside your home? * PCP Traci or Faisal * [facility] * Preadmission Environment Home with Family * ADLs Independent * Equipment Shower Chair * List name and contact numbers for known caregivers / representatives who currently or will assist patient after discharge: Danita Crawford Grandmother - [phone] * Verbal permission to speak to the caregivers and representatives has been obtained from the patient. Yes * Community resources currently utilized None * Additional services required to return to the preadmission environment? No * Can the patient safely return to the preadmission environment? Yes * Has this patient been hospitalized within the prior 30 days at any hospital? No Last DP export: 08/10/18 4:12 p Patient Name: CAMMIE SUAREZ Page 21669 at 1720 All edits/amendments must be made on the electronic document DICTATION DATE: 08/10/181718 STATE FIRE MARSHAL: KAREN 08/10/181718 RPT#: [id number] DC DATE:08/10/18 STATUS: DIS IN [facility] [address] [place] [address] END OF REPORT
--- NOTE | ~2018-07-27 | OP ---
PATIENT NAME: CAMMIE SUAREZ MEDICAL RECORD: [id number] :68 LOCATION:[facility] ADMISSION DATE:07/27/18 SURGEON: MIKE SOUZA MD DATE OF OPERATION: 07/29/2018 SURGEON: Mike Souza MD E COMMERCE RETAILER: SHORTY Angel OPERATIONS PERFORMED: 1. Reentry sternotomy greater than 30 days post-sternotomy. 2. Mitral valve replacement ([address] C mechanical). PREOPERATIVE DIAGNOSES: Mitral regurgitation and dilated cardiomyopathy. POSTOPERATIVE DIAGNOSES: Mitral regurgitation and dilated cardiomyopathy. ANESTHESIA: General endotracheal anesthesia. ESTIMATED BLOOD LOSS: Total cardiopulmonary bypass with Cell Saver retransfusion, 2 FFP, 2 platelets. COMPLICATIONS: None. SPECIMENS: Mitral valve leaflets. CONDITION: Stable. DISPOSITION: CV ICU. OPERATIVE FINDINGS: 1. Transesophageal echocardiography confirmed eccentric jet of regurgitation directed across the anterior leaflet and up the wall of an enlarged left atrium. 2. Intraoperative inspection revealed that the anterior leaflet, artificial chordee were intact with good mobility and function of the anterior leaflet, the annuloplasty ring, and the localized annuloplasty were intact, but the site of quadrangular resection had dehisced with intact sutures allowing regurgitation at the central portion of the posterior leaflet. 3. Valve ring and valve leaflets removed, pledgeted sutures used from ventricular to aortic side. 4. No valvular incompetence or perivalvular leak by ALISON after separation and improved contractility on low-dose dobutamine, bradycardia requiring AV pacing. 5. 1200 cc right pleural effusion, serous. INDICATIONS: Recurrent mitral regurgitation and decreasing left ventricular function after mitral valve complex repair. PROCEDURE IN DETAIL: The patient was brought to the operative suite. General anesthesia was obtained, the patient was prepped and draped. The old midline incision was made. Subcutaneous tissues divided with electrocautery. The wires were untwisted and held vertically. Oscillating sternal saw was used to divide the sternum. Wires were removed. Careful dissection at the sternal table was taken. The innominate vein was dissected out as well as the right atrium and then the aorta. The patient was heparinized. The aorta was cannulated at the site of the old cannulation by removing the pledgets. Bicaval cannulation was OPERATIVE REPORT [id number] CAMMIE SUAREZ performed. The patient was placed in cardiopulmonary bypass after activated clotting time was appropriately elevated. Remainder of the heart was dissected free, particularly down into the transverse sinus, freeing up the inferior and superior vena cava. Retrograde cardioplegic cannula was inserted through a pursestring in the right atrium. The patient was cooled. Crossclamp was placed. A 14-gauge angiocatheter needle was used for antegrade cardioplegia, retrograde cardioplegia was given. This was repeated at 20-minute intervals throughout the crossclamp time. The old left atrial suture line was opened by removing suture material and pledgets. The valve was visualized with findings as above. Debrided and ring removed. Thorough irrigation was undertaken. Pledgeted sutures placed through the sewing ring. The valve carefully lowered into place. Inspected the valve there was no subvalvular obstruction and the valve leaflets easily opened and closed. The atrium was closed with a double running pledgeted suture line and with the patient in steep Trendelenburg position, left ventricular apex was de-aired and then, the crossclamp was removed. The cardioplegia site was used for venting and it was oversewn. The patient had atrial and ventricular pacing wires placed. The retrograde cardioplegia cannula was removed and the site was oversewn. The patient was rewarmed, removed from the cardiopulmonary bypass and stable. The patient was decannulated. The cannula sites were oversewn. Protamine was given. Thorough irrigation was undertaken. Hemostasis was ensured. The sternum was closed with wires. Both chests were drained with pleural drains. Sternum was closed with wires. Fascia was closed. Subcutaneous tissue was closed. Skin was closed. Dermabond was placed. The needle and sponge counts were reported as correct. The patient was taken to the ICU in stable condition. TRANSINT:[id number] Voice Confirmation ID: [id number] DOCUMENT ID: [id number] MIKE SOUZA MD at 0949 CC: RAYO GOSS MD [id number] DICTATION DATE: 07/29/181609 TABLE RUNNER: 07/29/182052 ADM IN [place] [id number] [place] [address]
--- NOTE | ~2018-07-27 | MORECARE ---
CASE MANAGEMENT DISCHARGE SUMMARY PATIENT: CAMMIE SUAREZ UNIT: [id number] ADM DATE: 07/27/18 AGE: 48 : 68 SEX: M ROOM/BED: D[facility] AUTHOR: ANDREI WARD PHYSICIAN: REFERRING PHYSICIAN: KALEN SOUZA MD DATE OF SERVICE: 08/05/18 Discharge Plan Patient Name: CAMMIE SUAREZ Facility: [facility]:[place] : 1970 Planned Disposition: Home Anticipated Discharge Date: Discharge Date: Expected LOS: Initial Reviewer: [email or web address] Initial Review Date: 08/04/2018 Generated: 08/05/18 9:30 pm Comments DCP- Discharge Planning Updated by [email or web address]: Perla Florence on 08/05/18 7:[address] Late Entry 08/04/18 @ 1000 Patient Name: CAMMIE SUAREZ Admission Status: ER Accout number: [id number] Admission Date: 07-27-2018 : 1970 Admission Diagnosis:SHORTNESS OF BREATH Attending: KALEN SOUZA Current LOS: 9 Anticipated DC Date: Planned Disposition: Home Primary Insurance: [employer] [facility] Discharge Planning Comments: CM met with patient at bedside after obtaining verbal consent. Patient states he plans on returning home after discharge with his mother and grandmother. Patient states he will have family transport him home via private vehicle. Patient denies any discharge needs at this time. CM will continue to follow and assist as needed for discharge planning / needs. Ase Master Mechanic: Perla Florence DCPIA - Discharge Planning Initial Assessment Updated by [email or web address]: Perla Florence on 08/05/18 8:22 pm * Is the patient Alert and Oriented? Yes * How many steps to enter\exit or inside your home? * PCP Traci or Faisal * [facility] * Preadmission Environment Home with Family * ADLs Independent * Equipment Shower Chair * List name and contact numbers for known caregivers / representatives who currently or will assist patient after discharge: Danita Crawford - Grandmother - [phone] * Verbal permission to speak to the caregivers and representatives has been obtained from the patient. Yes * Community resources currently utilized None * Additional services required to return to the preadmission environment? No * Can the patient safely return to the preadmission environment? Yes * Has this patient been hospitalized within the prior 30 days at any hospital? No Last DP export: 08/05/18 7:23 p Patient Name: CAMMIE SUAREZ Page 01320 at 2030 All edits/amendments must be made on the electronic document DICTATION DATE: 08/05/182028 CUSTOMER OPERATIONS REPRESENTATIVE: KAREN 08/05/182028 RPT#: [id number] DC DATE: STATUS: ADM IN [facility] [address] [place] [address] END OF REPORT
--- NOTE | ~2018-07-27 | HEMODYNAMI ---
PATIENT:CAMMIE SUAREZ MEDICAL RECORD: [id number] : 68 LOCATION:[facility] D.2121 ADMISSION DATE: 07/27/18 Generatedon:07/28/201814:14 Patient name: CAMMIE SUAREZ Patient #: [id number] SSN: : 1970 Date of study: 07/28/2018 Page: Of Hemodynamic Procedure Report Patient Data Patient Demographics Procedure consent was obtained First Name: CAMMIE Gender: Male Last Name: ERICK : 1970 [facility] Initial: DANIEL Age: 48 year(s) Patient #: [id number] Race: Unknown Additional ID: [id number] Contact details Address: [address] [place] [address] State: [place] City: [place] Zip code: [address] Past Medical History Allergies Allergen Reaction Date Comments Reported Other allergy 01/05/2018 VENOM-WASP Other allergy 01/26/2018 WASP VENOM Other allergy 07/28/2018 WASP- VENOM Admission Admission Data Admission Date: 07/27/2018 Admission Time: 11:08 Room #: D.2121 Lab Results Lab Result Date: 07/28/2018 Lab Result Time: 0:00 Biochemistry Name Units Result Min Max BUN mg/dl 24 --(----)-* 7 18 Creatinine mg/dl 0.9 --(-*--)-- 0.6 1.3 CBC Name Units Result Min Max Hemoglobin g/dl 11.2 *-(----)-- 13.5 17.5 Procedure Procedure Types Cath Procedure Diagnostic Procedure ALISON Procedure Description Procedure Date Procedure Date: 07/28/2018 Procedure Start Time: 13:55 Procedure End Time: 14:13 Procedure Staff Name Function Kailash Hyatt MD Performing Physician Joel Jones CRNA Additional personnel Gianna Bragg RT Monitor Vinicius Babin Applier Iron Hammond RN Nurse Procedure Data Cath Procedure Estimated blood loss: 0 ml Procedure Complications No complications Procedure Medications Medication Administration Route Dosage Oxygen etCO2 Nasal cannula 6 l/min 0.9% NaCl I.V. 100 ml/hr Refer to Anesthesia Notes for Sedation Medications Hemodynamics Rest HGB: 11.2 (g/dl) Heart Rate: 95 (bpm) Snapshots Pre Cath Intra NCS Post Cath Vital Signs Time Heart Resp SPO2 etCO2 NIBP Rhythm Pain Sedation Rate (ipm) (%) (mmHg) (mmHg) Status Level (bpm) 13:46:50 94 26 100 21 112/80(89) NSR 0 (11) 10(A) , No pain 13:51:38 93 26 100 21.1 113/77(86) NSR 0 (11) 10(A) , No pain 13:55:55 92 34 100 22.6 93/71(79) NSR 0 (11) 10(A) , No pain 13:59:52 93 18 100 19.5 100/78(90) NSR 0 (11) 10(A) , No pain 14:03:54 92 32 100 24.1 99/71(82) NSR 0 (11) 10(A) , No pain 14:08:53 93 24 27.9 Measuring NSR 0 (11) 10(A) , No pain 14:09:34 92 35 100 24.8 Disturbed NSR 0 (11) 10(A) , No pain 14:11:55 91 30 28.6 102/76(92) NSR 0 (11) 10(A) , No pain Medications Time Medication Route Dose Verified Delivered Reason Notes Effective ness by by 13:57:23 Oxygen etCO2 6 Kailash Perdue Per Nasal l/min St Corky Hammond RN physician cannula 13:57:37 0.9% NaCl I.V. 100 Kailash Perdue Per ml/hr St Corky Hammond RN physician 13:57:47 Refer to Kailash Perdue Per Anesthesia St Corky Hammond RN physician Notes for Sedation Medications Procedure Log Time Note 13:33:48 Time tracking: Regular hours (M-F 7:00 - 5:00) 13:33:52 Plan of Care:Hemodynamics will remain stable., Cardiac rhythm will remain stable., Comfort level will be maintained., Respiratory function will remain adequate., Patient/ family verbilizes understanding of procedure., Procedure tolerated without complication., Recovers from procedure without complications.. 13:33:53 Signed procedure consent form obtained from patient. 13:33:55 Iron Hammond RN sent for patient. Start room use. 13:34:02 H&P Date Dictated: 07/27/2018 Within 30 days and on chart.. 13:45:51 Patient arrived from Med II to CCL 3. Patient remains on bed/stretcher for procedure. 13:45:53 Warm blankets applied, and nidhi hugger turned on for patient comfort. 13:45:53 Correct patient and procedure confirmed by team. 13:45:54 ECG and BP/O2 sat monitors applied to patient. 13:45:54 Vital chart was started 13:45:55 Baseline sample Acquired. 13:45:59 Rhythm: sinus rhythm 13:46:00 Full Disclosure recording started 13:46:01 Pre-procedure instructions explained to patient. 13:46:01 Pre-op teaching completed and patient verbalized understanding. 13:46:04 Family unavailable. 13:46:05 Patient NPO since Midnight. 13:46:20 Patient allergic to Other allergyWASP- VENOM 13:46:22 Is patient on blood thinner?No 13:46:24 Patient diabetic? No. 13:46:27 Previous problem with sedation/anesthesia? No ? 13:46:28 Snore? No 13:46:29 Sleep apnea? No 13:46:31 Opens mouth fully? Yes 13:46:32 Deviated septum? No 13:46:33 Sticks out tongue? Yes 13:46:36 Airway obstruction? No ? 13:46:38 Dentures? No ? 13:46:45 IV patent on arrival in left hand with 0.9% NaCl at O. 13:48:08 Lab Result : BUN 24 mg/dl 13:48:08 Lab Result : Creatinine 0.9 mg/dl 13:48:08 Lab Result : Hemoglobin 11.2 g/dl 13:48:11 Lab results completed and on chart. 13:48:14 Alarms reviewed by R. N. 13:48:14 Sharps counted by scrub and verified by R.N. 13:54:59 --------ALL STOP TIME OUT------ 13:54:59 Final Timeout: patient, procedure, and site verified with staff and physician. All members of the team are in agreement. 13:55:03 Physical assessment completed. ASA score P 3 - A patient with severe systemic disease as per Kailash Hyatt MD. 13:55:07 Sedation plan: TIVA Medication:Propofol 13:55:10 Joel Jones CRNA present and monitoring patient for TIVA. 13:55:16 Vinicius Martinez present for ALISON. 13:55:59 Procedure started. 13:56:42 ALISON started. 13:57:23 Oxygen 6 l/min etCO2 Nasal cannula was administered by Iron Hammond RN; Per physician; 13:57:37 0.9% NaCl 100 ml/hr I.V. was administered by Iron Hammond RN; Per physician; 13:57:47 Refer to Anesthesia Notes for Sedation Medications was administered by Iron Hammond RN; Per physician; 14:07:23 ALISON completed. 14:07:46 Procedure ended.(Physican Out) 14:09:34 Post-procedure physical assessment completed. ASA score P 3 - A patient with severe systemic disease as per Kailash Hyatt MD. 14:09:37 Post procedure rhythm: sinus rhythm 14:09:44 Estimated blood loss: 0 ml 14:09:46 Post procedure instruction explained to patient.Patient verbalizes understanding. 14:09:46 Patient needs reinforcement of post procedure teaching. 14:13:23 Procedure and supply charges have been captured, reviewed, submitted and are correct. 14:13:25 Procedure Complication : No complications 14:13:27 Vital chart was stopped 14:13:28 See physician's report for complete and final results. 14:13:29 Report given to PCU. 14:13:33 Patient transfered to PCU with Bed. 14:13:35 Procedure ended. 14:13:35 Full Disclosure recording stopped 14:13:40 End room use (Document Last) Signature Audit [place] Stage Time Signature Unsigned Intra-Procedure 07/28/2018 Gianna Bragg 2:14:05 PM RT(R) Signatures Monitor : Gianna Bragg Signature : RT Date : Time : [facility] [address] [place] [address]
--- NOTE | ~2018-07-27 | MORECARE ---
CASE MANAGEMENT DISCHARGE SUMMARY PATIENT: CAMMIE SUAREZ UNIT: [id number] ADM DATE: 07/27/18 AGE: 48 : [birth year] SEX: M ROOM/BED: D.[facility] AUTHOR: ANDREI WARD PHYSICIAN: REFERRING PHYSICIAN: KALEN SOUZA MD DATE OF SERVICE: 08/05/18 Discharge Plan Patient Name: CAMMIE SUAREZ [facility] [facility] 1970 Planned Disposition: Home Anticipated Discharge Date: Discharge Date: Expected LOS: Initial Reviewer: [email or web address] Initial Review Date: 08/04/2018 Generated: 08/05/18 9:23 pm DCPIA - Discharge Planning Initial Assessment Updated by [email or web address]: Perla Florence on 08/05/18 8:22 pm * Is the patient Alert and Oriented? Yes * How many steps to enter\exit or inside your home? * PCP Traci or Faisal * Pharmacy [facility] * Preadmission Environment Home with Family * ADLs Independent * Equipment Shower Chair * List name and contact numbers for known caregivers / representatives who currently or will assist patient after discharge: Danita Crawford - Grandmother - [phone] * Verbal permission to speak to the caregivers and representatives has been obtained from the patient. Yes * Community resources currently utilized None * Additional services required to return to the preadmission environment? No * Can the patient safely return to the preadmission environment? Yes * Has this patient been hospitalized within the prior 30 days at any hospital? No Patient Name: CAMMIE SUAREZ Page [id number] at 2023 All edits/amendments must be made on the electronic document DICTATION DATE: 08/05/182021 TEST AND BALANCE ENGINEER: KAREN 08/05/182021 RPT#: [id number] ID DATE: STATUS: ADM IN [facility] [address] [place] [address] END OF REPORT
--- NOTE | ~2018-07-27 | TEE ---
PATIENT:CAMMIE SUAREZ MEDICAL RECORD: [id number] LOCATION:[place] [address] AGE OF PATIENT: 48 ADMISSION DATE: 07/27/18 SEX: M REFERRING PHYSICIAN: INTERPRETING PHYSICIAN: ADELITA DALY MD TRANSESOPHAGEAL ECHOCARDIOGRAM Date: 07/29/18 ALISON CHARGE Y INDICATIONS: MITRAL VALVE REPLACEMENT/REDO PREMEDICATIONS: PATIENT'S RESPONSE PROCEDURE DOPPLER MEASUREMENTS: LVIT LA PA RA LVOT RVOT Asc. Ao AV Gradient Peak AV Mean AV Area MV Gradient Peak MV Mean MV Area INTERPRETATION: Doppler: 2-D: LA SIZE 5.7CM COLOR FLOW DOPPLER NORMAL SALINE STUDY: MISCELLANOUS: DIAGNOSIS: PLAN: Sugar Coating Hand:Shannon Sommers Mental Health Practitioner: Daniel WYNN COMMENTS: DR. SOUZA PATIENT DATE OF SERVICE: 07/29/2018 DATE OF SERVICE: 07/29/2018 INDICATION: Evaluation of valvular structures during mitral valve replacement surgery. FINDINGS: 1. Left ventricular chamber size is within normal limits. Left ventricular TRANSESOPHAGEAL ECHOCARDIOGRAM REPORT [id number] CAMMIE SUAREZ systolic function is normal. Overall ejection fraction estimated at 50%. 2. Left atrium is markedly enlarged at 5.7 cm. Right atrium and right ventricle chamber sizes are as well moderately dilated. 3. Valvular structures and mitral valve is redundant with severe mitral regurgitation. The remaining valvular structures have normal structure and motion. 4. Doppler interrogation elsewise reveals no significant valvular insufficiency or stenosis. 5. No evidence of pericardial effusion or left ventricular thrombus. TRANSINT:[id number] Voice Confirmation ID: [id number] DOCUMENT ID: [id number] at 1903 CC: [id number] DICTATION DATE: 07/30/18 1136 NURSE PRACTITIONER PHYSICIAN ASSISTANT: 07/30/18 2244 ADM IN [facility] [address] [place] [address]
--- NOTE | ~2018-07-27 | TEE ---
PATIENT:CAMMIE SUAREZ MEDICAL RECORD: [id number] LOCATION:[place] [address] AGE OF PATIENT: 48 ADMISSION DATE: 07/27/18 SEX: M REFERRING PHYSICIAN: INTERPRETING PHYSICIAN: RAYO GOSS MD TRANSESOPHAGEAL ECHOCARDIOGRAM Date: 08/01/18 ALISON CHARGE Y INDICATIONS: MITRAL VALVE REPLACEMENT/REDO PREMEDICATIONS: PATIENT'S RESPONSE PROCEDURE DOPPLER MEASUREMENTS: LVIT LA PA RA LVOT RVOT Asc. Ao AV Gradient Peak AV Mean AV Area MV Gradient Peak MV Mean MV Area INTERPRETATION: Doppler: 2-D: LA SIZE 5.7CM COLOR FLOW DOPPLER NORMAL SALINE STUDY: MISCELLANOUS: DIAGNOSIS: PLAN: Special Education Classroom Aide:4 Dr. Goss Operators Teacher: Adarsh WEINER COMMENTS: DR. SOUZA PATIENT DATE OF SERVICE: PROCEDURE: Intraoperative transesophageal echocardiogram. FINDINGS: This is an intraoperative transesophageal echocardiogram. The patient showed severe mitral regurgitation preoperatively. The postoperative ALISON showed normal function, mechanical valve. Ejection fraction in the 40% to 45% range. No significant perivalvular leakage. TRANSESOPHAGEAL ECHOCARDIOGRAM REPORT [id number] CAMMIE SUAREZ TRANSINT:[id number] Voice Confirmation ID: [id number] DOCUMENT ID: [id number] at 0916 CC: [id number] DICTATION DATE: 08/02/1845 CONTACT CENTER REPRESENTATIVE: 08/02/18 09 DIS IN 08/10/18 [facility] [address] [place] [address]
--- NOTE | ~2018-07-27 | EC ---
PATIENT:CAMMIE SUAREZ DATE OF SERVICE: 07/27/18 SEX: M MEDICAL RECORD: [id number] DATE OF : [birth year] LOCATION:D.M2 D.212 AGE OF PATIENT: 48 ADMISSION DATE: 07/27/18 REFERRING PHYSICIAN: INTERPRETING PHYSICIAN: HELENA GARY MD ECHOCARDIOGRAM REPORT ECHO CHARGES Date: 07/28/18 CLINICAL DIAGNOSIS: ECHOCARDIOGRAPHIC MEASUREMENTS (adult normal given) AC root (d.<3.7cm) cm LV Septum d (<1.2 cm> cm Valve Excursion cm LV Septum (systole) cm Left Atria (s.<4.0cm> cm LVPW d(<1.2cm) cm RV (d.<2.3cm) cm LVPW (sytole) cm LV diastole(<5.6CM) cm MV E-F(>70mm/sec) cm LV systole cm LVOT Diameter cm MV exc.(>10mm) cm Est.ejection fraction (50-75%) % DOPPLER: LVIT cm/sec A cm/sec E cm/sec LA cm/sec RVSP mmHg LVOT cm/sec AOP1/2T m/s Asc. Ao cm/sec RVOT cm/sec RA cm/sec PA cm/sec AV Gradient Peak mmHg AV Mean mmHg AV Area cm MV Gradient Peak mmHg MV Mean mmHg MV Area cm COMMENTS: Pediatric Ophthalmologist: Moiz WHITNEYOE Sales Project Engineer: 3 Dr. Pena TAPE# PACS Pericardial Effusion DATE OF SERVICE: TRANSESOPHAGEAL NOTE DESCRIPTION OF PROCEDURE: After general sedation via TIVA anesthesia, transesophageal Omniplane probe was placed in the distal esophagus and proximal stomach without difficulty. FINDINGS: No LVH. LV internal dimensions are normal. LV is globally hypokinetic with EF reduced 30% to 35%. Aortic valve is tricuspid. No evidence ECHOCARDIOGRAM REPORT [id number] CAMMIE SUAREZ of stenosis by 2D. No significant AI. Left atrium appears dilated. Mitral valve shows mitral valve repair with an anterior directed jet of mitral regurgitation, moderate to severe. Right-sided chambers were grossly normal. Mild TR. At the end of the procedure, the transesophageal Omniplane probe was turned posteriorly and this showed no atherosclerotic debris in the descending aorta. TRANSINT:[id number] Voice Confirmation ID: [id number] DOCUMENT ID: [id number] HELENA GARY MD at 2229 CC: [id number] DICTATION DATE: 07/28/18 1417 AVIATION SURVIVAL TECHNICIAN: 07/28/18 1518 ADM IN [place] [id number] [place] [address]
[~2018-07-27 10:11] MED LIST changes: -COLACE100 MG PO; -COUMADIN5 MG PO; -ENTRESTO 24 MG1 EACH PO; -PERCOCET 5-3251 TAB PO; -XARELTO15 MG
[2018-07-27 11:09] LABS: BASOPHILS 0.6 % (0-2); EOSINOPHILS 1.1 % (0-7); HEMATOCRIT 35.9 % (42.0-54.0); HEMOGLOBIN 11.2 g/dL (13.5-17.5); IMMATURE GRANULOCYTES 0.3 % (0-5); LYMPHOCYTES 17.7 % (15-50); MCH 24.7 pg (26.0-34.0); MCHC 31.2 g/dL (31.0-37.0); MCV 79.2 fL (80.0-100.0); MEAN PLATELET VOLUME 10.1 fL (7.4-10.4); MONOCYTES 5.6 % (2-11); NEUTROPHILS 74.7 % (40-80); PLATELET COUNT 418 10x3/uL (130-400); RBC 4.53 10x6/uL (4.20-6.10); RDW 14.5 % (11.5-14.5); WBC 7.2 10x3/uL (4.8-10.8)
[2018-07-27 11:16] LABS: APTT 30.1 SECONDS (22.8-39.4); INR 1.22 (0.85-1.17)
[2018-07-27 11:17] LABS: D-DIMER-QUANTITATIVE 0.99 ug/mLFEU (0.20-0.54)
[2018-07-27 11:25] LABS: ALBUMIN 3.6 g/dL (3.4-5.0); ALKALINE PHOSPHATASE 69 U/L (46-116); ALT (SGPT) 99 U/L (10-68); BILIRUBIN - TOTAL 0.95 mg/dL (0.2-1.3); CALC OSMOLALITY 282 mosm/kg (275-300); CALCIUM 8.6 mg/dL (8.5-10.1); CARBON DIOXIDE 22.7 mmol/L (21.0-32.0); CHLORIDE - SERUM 106 mmol/L (98-107); CREATININE - SERUM 0.9 mg/dL (0.6-1.3); GLUCOSE 94 mg/dL (74-106); POTASSIUM - SERUM 4.5 mmol/L (3.5-5.1); PROTEIN - SERUM 6.3 g/dL (6.4-8.2); SODIUM 140 mmol/L (136-145); UREA NITROGEN 24 mg/dL (7-18); eGFR NON AFRICAN AMERICAN > 90 mL/min (90-120)
[2018-07-27 11:36] LABS: CKMB 1.6 U/L (0.0-3.6); CREATINE KINASE 133 UL (21-232); PRO BNP 2235 pg/mL (0-125); TROPONIN-I < 0.017 ng/mL (0.000-0.060)
[2018-07-27] MEDS ORDERED: ENTRESTO 24 MG1 EACH PO (11:58)
[2018-07-27 12:19] VITALS: BP 113/79; BMI 20.7
[2018-07-27 15:33] VITALS: BP 120/76
[2018-07-27 20:00] VITALS: BP 106/71
[2018-07-28 01:10] VITALS: BP 94/57
[2018-07-28 06:06] VITALS: BP 102/64
[2018-07-28 08:14] VITALS: BP 82/53
[2018-07-28 11:52] VITALS: BP 92/62
[2018-07-28 15:03] VITALS: BP 125/73
[2018-07-28 17:15] LABS: PHOSPHOROUS 3.8 mg/dL (2.5-4.9); T4 THYROXIN - FREE 1.75 ng/dL (0.76-1.46); THYROID STIMULATING HORMONE 3.26 uIU/mL (0.36-3.74); URIC ACID 3.4 mg/dL (2.6-7.2)
[2018-07-28 20:00] VITALS: BP 97/66
[2018-07-29] VITALS (40 sets, daily range): BP systolic 91–127; BP diastolic 46–75; Ht 175.3 cm; Wt 60.0 kg
[2018-07-29 05:29] LABS: APPEARANCE CLEAR (CLEAR); BILIRUBIN NEGATIVE (NEGATIVE); COLOR YELLOW (YELLOW); GLUCOSE NEGATIVE (NEGATIVE); KETONE NEGATIVE (NEGATIVE); NITRITE NEGATIVE (NEGATIVE); PROTEIN TRACE mg/dL (NEGATIVE)
[2018-07-29 05:30] LABS: BACTERIA NONE SEEN /hpf (NONE SEEN); EPITHELIAL CELLS 0-5 /hpf (0-5); RED CELLS - URINE 0-5 /hpf (0-5); WHITE CELLS - URINE 0-5 /hpf (0-5)
[2018-07-30] VITALS (80 sets, daily range): BP systolic 83–118; BP diastolic 38–68
[2018-07-30 00:38] LABS: BASOPHILS 0.4 % (0-2); EOSINOPHILS 0 % (0-7); HEMATOCRIT 23.1 % (42.0-54.0); IMMATURE GRANULOCYTES 0.2 % (0-5); LYMPHOCYTES 8.5 % (15-50); MCH 24.4 pg (26.0-34.0); MCHC 30.7 g/dL (31.0-37.0); MCV 79.4 fL (80.0-100.0); MEAN PLATELET VOLUME 9.2 fL (7.4-10.4); MONOCYTES 6.4 % (2-11); NEUTROPHILS 84.5 % (40-80); RBC 2.91 10x6/uL (4.20-6.10); RDW 14.8 % (11.5-14.5); WBC 10.2 10x3/uL (4.8-10.8)
[2018-07-30 00:40] LABS: HEMOGLOBIN 7.1 g/dL (13.5-17.5); PLATELET COUNT 257 10x3/uL (130-400)
[2018-07-30 00:56] LABS: ALBUMIN 2.4 g/dL (3.4-5.0); ALKALINE PHOSPHATASE 38 U/L (46-116); ALT (SGPT) 39 U/L (10-68); CALC OSMOLALITY 283 mosm/kg (275-300); CARBON DIOXIDE 24.3 mmol/L (21.0-32.0); CHLORIDE - SERUM 105 mmol/L (98-107); CREATININE - SERUM 1.1 mg/dL (0.6-1.3); GLUCOSE 127 mg/dL (74-106); POTASSIUM - SERUM 4.3 mmol/L (3.5-5.1); PROTEIN - SERUM 4.5 g/dL (6.4-8.2); SODIUM 140 mmol/L (136-145); UREA NITROGEN 20 mg/dL (7-18); eGFR NON AFRICAN AMERICAN 75 mL/min (90-120)
[2018-07-30 00:58] LABS: CALCIUM 6.9 mg/dL (8.5-10.1)
[2018-07-30 05:58] LABS: HEMATOCRIT 23.1 % (42.0-54.0); MCH 24.3 pg (26.0-34.0); MCHC 31.2 g/dL (31.0-37.0); MEAN PLATELET VOLUME 9.4 fL (7.4-10.4); RBC 2.96 10x6/uL (4.20-6.10); RDW 14.3 % (11.5-14.5); WBC 9.9 10x3/uL (4.8-10.8)
[2018-07-30 06:08] LABS: HEMOGLOBIN 7.2 g/dL (13.5-17.5)
[2018-07-30 06:10] LABS: ALBUMIN 2.5 g/dL (3.4-5.0); ALKALINE PHOSPHATASE 40 U/L (46-116); ALT (SGPT) 42 U/L (10-68); BILIRUBIN - TOTAL 1.05 mg/dL (0.2-1.3); CALC OSMOLALITY 278 mosm/kg (275-300); CALCIUM 7.1 mg/dL (8.5-10.1); CARBON DIOXIDE 24.7 mmol/L (21.0-32.0); CHLORIDE - SERUM 103 mmol/L (98-107); GLUCOSE 136 mg/dL (74-106); POTASSIUM - SERUM 4.5 mmol/L (3.5-5.1); PROTEIN - SERUM 4.8 g/dL (6.4-8.2); SODIUM 137 mmol/L (136-145); UREA NITROGEN 20 mg/dL (7-18); eGFR NON AFRICAN AMERICAN 84 mL/min (90-120)
[2018-07-31] VITALS (38 sets, daily range): BP systolic 91–116; BP diastolic 33–70
[2018-07-31 05:48] LABS: HEMATOCRIT 21.7 % (42.0-54.0); MCH 24.7 pg (26.0-34.0); MCHC 31.3 g/dL (31.0-37.0); MCV 78.9 fL (80.0-100.0); MEAN PLATELET VOLUME 9.9 fL (7.4-10.4); RBC 2.75 10x6/uL (4.20-6.10); RDW 14.5 % (11.5-14.5); WBC 9.5 10x3/uL (4.8-10.8)
[2018-07-31 05:56] LABS: HEMOGLOBIN 6.8 g/dL (13.5-17.5)
[2018-07-31 06:12] LABS: ALBUMIN 2.5 g/dL (3.4-5.0); ALKALINE PHOSPHATASE 40 U/L (46-116); ALT (SGPT) 46 U/L (10-68); BILIRUBIN - TOTAL 0.91 mg/dL (0.2-1.3); CALC OSMOLALITY 269 mosm/kg (275-300); CALCIUM 7.4 mg/dL (8.5-10.1); CARBON DIOXIDE 28.5 mmol/L (21.0-32.0); CHLORIDE - SERUM 100 mmol/L (98-107); CREATININE - SERUM 0.8 mg/dL (0.6-1.3); GLUCOSE 123 mg/dL (74-106); POTASSIUM - SERUM 4.6 mmol/L (3.5-5.1); PROTEIN - SERUM 5.3 g/dL (6.4-8.2); SODIUM 133 mmol/L (136-145); UREA NITROGEN 22 mg/dL (7-18); eGFR NON AFRICAN AMERICAN > 90 mL/min (90-120)
[2018-08-01] VITALS (36 sets, daily range): BP systolic 90–111; BP diastolic 48–78
[2018-08-01 05:48] LABS: HEMATOCRIT 20.1 % (42.0-54.0); MCH 24.7 pg (26.0-34.0); MCHC 31.8 g/dL (31.0-37.0); MCV 77.6 fL (80.0-100.0); MEAN PLATELET VOLUME 9.6 fL (7.4-10.4); RBC 2.59 10x6/uL (4.20-6.10); RDW 14.5 % (11.5-14.5); WBC 9.1 10x3/uL (4.8-10.8)
[2018-08-01 05:50] LABS: HEMOGLOBIN 6.4 g/dL (13.5-17.5)
[2018-08-01 05:58] LABS: INR 1.16 (0.85-1.17); PROTIME 14.4 SECONDS (11.6-15.0)
[2018-08-01 06:03] LABS: ALBUMIN 2.5 g/dL (3.4-5.0); ALKALINE PHOSPHATASE 41 U/L (46-116); ALT (SGPT) 48 U/L (10-68); BILIRUBIN - TOTAL 0.86 mg/dL (0.2-1.3); CALC OSMOLALITY 269 mosm/kg (275-300); CALCIUM 7.6 mg/dL (8.5-10.1); CARBON DIOXIDE 27.2 mmol/L (21.0-32.0); CHLORIDE - SERUM 99 mmol/L (98-107); CREATININE - SERUM 0.8 mg/dL (0.6-1.3); GLUCOSE 102 mg/dL (74-106); PROTEIN - SERUM 5.5 g/dL (6.4-8.2); SODIUM 133 mmol/L (136-145); UREA NITROGEN 23 mg/dL (7-18); eGFR NON AFRICAN AMERICAN > 90 mL/min (90-120)
[2018-08-01 06:07] LABS: POTASSIUM - SERUM 3.9 mmol/L (3.5-5.1)
[2018-08-01 19:12] LABS: CALC OSMOLALITY 275 mosm/kg (275-300); CALCIUM 7.8 mg/dL (8.5-10.1); CARBON DIOXIDE 27.1 mmol/L (21.0-32.0); CHLORIDE - SERUM 99 mmol/L (98-107); CREATININE - SERUM 0.9 mg/dL (0.6-1.3); GLUCOSE 120 mg/dL (74-106); MAGNESIUM - SERUM 2.3 mg/dL (1.8-2.4); POTASSIUM - SERUM 3.9 mmol/L (3.5-5.1); SODIUM 135 mmol/L (136-145); UREA NITROGEN 26 mg/dL (7-18); eGFR NON AFRICAN AMERICAN > 90 mL/min (90-120)
[2018-08-01 22:48] LABS: CKMB 0.9 U/L (0.0-3.6); CREATINE KINASE 146 UL (21-232)
[2018-08-01 22:52] LABS: TROPONIN-I 1.182 ng/mL (0.000-0.060)
[2018-08-02] VITALS (29 sets, daily range): BP systolic 90–114; BP diastolic 45–67
[2018-08-02 05:06] LABS: MCH 25.8 pg (26.0-34.0); MCHC 32.6 g/dL (31.0-37.0); MCV 79.2 fL (80.0-100.0); MEAN PLATELET VOLUME 9.7 fL (7.4-10.4); RDW 14.8 % (11.5-14.5)
[2018-08-02 05:21] LABS: HEMATOCRIT 28.5 % (42.0-54.0); HEMOGLOBIN 9.3 g/dL (13.5-17.5); RBC 3.6 10x6/uL (4.20-6.10); WBC 13.4 10x3/uL (4.8-10.8)
[2018-08-02 05:26] LABS: INR 1.29 (0.85-1.17); PROTIME 15.7 SECONDS (11.6-15.0)
[2018-08-02 06:06] LABS: ALBUMIN 2.7 g/dL (3.4-5.0); ALKALINE PHOSPHATASE 53 U/L (46-116); BILIRUBIN - TOTAL 1.63 mg/dL (0.2-1.3); CALC OSMOLALITY 273 mosm/kg (275-300); CALCIUM 7.9 mg/dL (8.5-10.1); CARBON DIOXIDE 25.4 mmol/L (21.0-32.0); CHLORIDE - SERUM 99 mmol/L (98-107); CKMB 0.7 U/L (0.0-3.6); CREATINE KINASE 120 UL (21-232); GLUCOSE 128 mg/dL (74-106); POTASSIUM - SERUM 4.1 mmol/L (3.5-5.1); PROTEIN - SERUM 5.9 g/dL (6.4-8.2); SODIUM 133 mmol/L (136-145); UREA NITROGEN 29 mg/dL (7-18); eGFR NON AFRICAN AMERICAN 84 mL/min (90-120)
[2018-08-02 06:07] LABS: ALT (SGPT) 135 U/L (10-68); TROPONIN-I 1.077 ng/mL (0.000-0.060)
[2018-08-02 11:42] LABS: CKMB 0.6 U/L (0.0-3.6); CREATINE KINASE 133 UL (21-232); TROPONIN-I 0.976 ng/mL (0.000-0.060)
[2018-08-03] VITALS (25 sets, daily range): BP systolic 96–113; BP diastolic 45–69
[2018-08-03 06:01] LABS: HEMATOCRIT 24.2 % (42.0-54.0); HEMOGLOBIN 7.7 g/dL (13.5-17.5); MCH 25.3 pg (26.0-34.0); MCHC 31.8 g/dL (31.0-37.0); MCV 79.6 fL (80.0-100.0); RBC 3.04 10x6/uL (4.20-6.10)
[2018-08-03 06:05] LABS: INR 1.39 (0.85-1.17); PROTIME 16.6 SECONDS (11.6-15.0)
[2018-08-03 06:08] LABS: WBC 7.2 10x3/uL (4.8-10.8)
[2018-08-03 06:44] LABS: ALBUMIN 2.4 g/dL (3.4-5.0); ALKALINE PHOSPHATASE 46 U/L (46-116); ALT (SGPT) 109 U/L (10-68); BILIRUBIN - TOTAL 1.42 mg/dL (0.2-1.3); CALC OSMOLALITY 277 mosm/kg (275-300); CALCIUM 7.4 mg/dL (8.5-10.1); CARBON DIOXIDE 27.8 mmol/L (21.0-32.0); CHLORIDE - SERUM 102 mmol/L (98-107); CREATININE - SERUM 0.6 mg/dL (0.6-1.3); GLUCOSE 112 mg/dL (74-106); POTASSIUM - SERUM 3.5 mmol/L (3.5-5.1); PROTEIN - SERUM 5.3 g/dL (6.4-8.2); SODIUM 137 mmol/L (136-145); UREA NITROGEN 21 mg/dL (7-18); eGFR NON AFRICAN AMERICAN > 90 mL/min (90-120)
[2018-08-04] VITALS (27 sets, daily range): BP systolic 91–112; BP diastolic 57–72
[2018-08-04 04:36] LABS: HEMATOCRIT 24.3 % (42.0-54.0); HEMOGLOBIN 7.6 g/dL (13.5-17.5); MCH 25.2 pg (26.0-34.0); MCHC 31.3 g/dL (31.0-37.0); MCV 80.5 fL (80.0-100.0); MEAN PLATELET VOLUME 9.4 fL (7.4-10.4); RBC 3.02 10x6/uL (4.20-6.10); RDW 15.4 % (11.5-14.5); WBC 8.1 10x3/uL (4.8-10.8)
[2018-08-04 05:05] LABS: APTT 35.1 SECONDS (22.8-39.4); INR 1.63 (0.85-1.17); PROTIME 18.8 SECONDS (11.6-15.0)
[2018-08-04] MEDS ORDERED: XARELTO15 MG (06:30)
[2018-08-05] VITALS (23 sets, daily range): BP systolic 95–122; BP diastolic 60–77
[2018-08-05 03:14] LABS: HEMATOCRIT 26.8 % (42.0-54.0); HEMOGLOBIN 8.4 g/dL (13.5-17.5); MCH 25.3 pg (26.0-34.0); MCHC 31.3 g/dL (31.0-37.0); MCV 80.7 fL (80.0-100.0); MEAN PLATELET VOLUME 9.2 fL (7.4-10.4); RBC 3.32 10x6/uL (4.20-6.10); RDW 15.6 % (11.5-14.5)
[2018-08-05 04:17] LABS: APTT 62.5 SECONDS (22.8-39.4)
[2018-08-05 04:27] LABS: INR 1.88 (0.85-1.17)
[2018-08-06] VITALS (25 sets, daily range): BP systolic 86–115; BP diastolic 44–71
[2018-08-06 00:59] LABS: HEMATOCRIT 24.3 % (42.0-54.0); HEMOGLOBIN 7.7 g/dL (13.5-17.5); MCH 25.2 pg (26.0-34.0); MCHC 31.7 g/dL (31.0-37.0); MCV 79.4 fL (80.0-100.0); MEAN PLATELET VOLUME 8.5 fL (7.4-10.4); RBC 3.06 10x6/uL (4.20-6.10); RDW 15.6 % (11.5-14.5); WBC 10.5 10x3/uL (4.8-10.8)
[2018-08-06 05:34] LABS: PROTIME 25.2 SECONDS (11.6-15.0)
[2018-08-06 05:37] LABS: APTT 114.1 SECONDS (22.8-39.4); INR 2.37 (0.85-1.17)
[2018-08-06 09:09] LABS: CALC OSMOLALITY 270 mosm/kg (275-300); CALCIUM 8.3 mg/dL (8.5-10.1); CARBON DIOXIDE 23.3 mmol/L (21.0-32.0); CHLORIDE - SERUM 101 mmol/L (98-107); CREATININE - SERUM 0.7 mg/dL (0.6-1.3); GLUCOSE 174 mg/dL (74-106); POTASSIUM - SERUM 4.2 mmol/L (3.5-5.1); SODIUM 134 mmol/L (136-145); UREA NITROGEN 11 mg/dL (7-18); eGFR NON AFRICAN AMERICAN > 90 mL/min (90-120)
[2018-08-07] VITALS (25 sets, daily range): BP systolic 88–104; BP diastolic 50–66
[2018-08-07 00:29] LABS: HEMATOCRIT 25.5 % (42.0-54.0); MCH 24.9 pg (26.0-34.0); MCHC 31.4 g/dL (31.0-37.0); MCV 79.4 fL (80.0-100.0); MEAN PLATELET VOLUME 8.5 fL (7.4-10.4); RBC 3.21 10x6/uL (4.20-6.10); RDW 15.3 % (11.5-14.5); WBC 8.2 10x3/uL (4.8-10.8)
[2018-08-07 06:16] LABS: INR 2.08 (0.85-1.17); PROTIME 22.8 SECONDS (11.6-15.0)
[2018-08-08] VITALS (22 sets, daily range): BP systolic 82–109; BP diastolic 43–65
[2018-08-08 05:56] LABS: BASOPHILS 0.6 % (0-2); EOSINOPHILS 11.3 % (0-7); HEMATOCRIT 28.9 % (42.0-54.0); HEMOGLOBIN 8.7 g/dL (13.5-17.5); IMMATURE GRANULOCYTES 0.3 % (0-5); LYMPHOCYTES 17.2 % (15-50); MCH 24.3 pg (26.0-34.0); MCHC 30.1 g/dL (31.0-37.0); MCV 80.7 fL (80.0-100.0); MEAN PLATELET VOLUME 8.9 fL (7.4-10.4); MONOCYTES 6.4 % (2-11); NEUTROPHILS 64.2 % (40-80); PLATELET COUNT 391 10x3/uL (130-400); RBC 3.58 10x6/uL (4.20-6.10); RDW 15.5 % (11.5-14.5); WBC 6.5 10x3/uL (4.8-10.8)
[2018-08-08 06:06] LABS: INR 1.94 (0.85-1.17); PROTIME 21.6 SECONDS (11.6-15.0)
[2018-08-09] VITALS (25 sets, daily range): BP systolic 84–127; BP diastolic 42–71
[2018-08-09 05:10] LABS: HEMATOCRIT 25.5 % (42.0-54.0); HEMOGLOBIN 7.7 g/dL (13.5-17.5); MCH 24.3 pg (26.0-34.0); MCHC 30.2 g/dL (31.0-37.0); MCV 80.4 fL (80.0-100.0); MEAN PLATELET VOLUME 8.7 fL (7.4-10.4); RBC 3.17 10x6/uL (4.20-6.10); RDW 15.5 % (11.5-14.5); WBC 5.7 10x3/uL (4.8-10.8)
[2018-08-09 05:19] LABS: INR 1.89 (0.85-1.17); PROTIME 21.1 SECONDS (11.6-15.0)
[2018-08-09 05:21] LABS: CALC OSMOLALITY 268 mosm/kg (275-300); CARBON DIOXIDE 25.1 mmol/L (21.0-32.0); CHLORIDE - SERUM 103 mmol/L (98-107); CREATININE - SERUM 0.7 mg/dL (0.6-1.3); POTASSIUM - SERUM 4.1 mmol/L (3.5-5.1); SODIUM 134 mmol/L (136-145); UREA NITROGEN 16 mg/dL (7-18); eGFR NON AFRICAN AMERICAN > 90 mL/min (90-120)
[2018-08-09 05:22] LABS: GLUCOSE 93 mg/dL (74-106)
[2018-08-10] VITALS (10 sets, daily range): BP systolic 87–108; BP diastolic 51–70
[2018-08-10 07:04] LABS: HEMATOCRIT 26.8 % (42.0-54.0); HEMOGLOBIN 8.1 g/dL (13.5-17.5); MCH 24.2 pg (26.0-34.0); MCHC 30.2 g/dL (31.0-37.0); MEAN PLATELET VOLUME 9.1 fL (7.4-10.4); RBC 3.35 10x6/uL (4.20-6.10); RDW 15.3 % (11.5-14.5); WBC 8.3 10x3/uL (4.8-10.8)
[2018-08-10 07:27] LABS: INR 1.98 (0.85-1.17); PROTIME 21.9 SECONDS (11.6-15.0)
[2018-08-10] MEDS ORDERED: PERCOCET 5-3251 TAB PO (14:30)
[2018-08-10] MEDS ORDERED: COUMADIN5 MG PO (14:37)
[2018-08-10] MEDS ORDERED: COLACE100 MG PO (14:47)
== END 2018-08-10 15:44 | disposition home or self-care (01) | DRG 219 ==
LOC: D.ER 10:11 → D.M2 11:08 → D.CVICU 11:08 → D.EDHOLD 11:08 → D.M2 11:29 → D.CVICU 07-29 09:31
PROVIDERS: Emergency Medicine; Internal Medicine Cardiovascular Disease; Thoracic Surgery (Cardiothoracic Vascular Surgery)
PROC: 5A1221Z Performance of Cardiac Output, Continuous (ICD-10-PCS; 2018-07-29)
PROC: B245ZZ4 Ultrasonography of Left Heart, Transesophageal (ICD-10-PCS; 2018-07-29)
PROC: 02RG0JZ Replacement of Mitral Valve with Synthetic Substitute, Open Approach (ICD-10-PCS; principal; 2018-07-29 07:30)
PROC: 0JH608Z Insertion of Defibrillator Generator into Chest Subcutaneous Tissue and Fascia, Open Approach (ICD-10-PCS; 2018-08-09)
PROC: 02H70KZ Insertion of Defibrillator Lead into Left Atrium, Open Approach (ICD-10-PCS; 2018-08-09)
PROC: 02HL3KZ Insertion of Defibrillator Lead into Left Ventricle, Percutaneous Approach (ICD-10-PCS; 2018-08-09)
DX: I34.0 Nonrheumatic mitral (valve) insufficiency (principal); I49.01 Ventricular fibrillation; I42.0 Dilated cardiomyopathy; D62 Acute posthemorrhagic anemia; I47.2 Ventricular tachycardia; I48.91 Unspecified atrial fibrillation; I45.81 Long QT syndrome; I50.9 Heart failure, unspecified

== ENCOUNTER → 2018-08-12 14:25 | Outpatient (CLI) | payer BC ==
[2018-07-29 13:51] VITALS: BMI 20.6
[~2018-08-12 14:25] MED LIST changes: +COLACE100 MG PO; +COUMADIN5 MG PO; +ENTRESTO 24 MG1 EACH PO; +PERCOCET 5-3251 TAB PO; +XARELTO15 MG
[2018-08-12 15:15] LABS: INR 2.43 (0.85-1.17); PROTIME 25.8 SECONDS (11.6-15.0)
== END | disposition home or self-care (01) ==
LOC: D.LAB 14:25
PROVIDERS: Thoracic Surgery (Cardiothoracic Vascular Surgery)
DX: Z51.81 Encounter for therapeutic drug level monitoring (principal); Z79.01 Long term (current) use of anticoagulants

== ENCOUNTER → 2018-08-16 11:19 | Outpatient (CLI) | payer BC ==
[2018-07-29 13:51] VITALS: BMI 20.6
[2018-08-16 11:45] LABS: INR 3.21 (0.85-1.17)
== END | disposition home or self-care (01) ==
LOC: D.LAB 11:19
PROVIDERS: Thoracic Surgery (Cardiothoracic Vascular Surgery)
DX: Z51.81 Encounter for therapeutic drug level monitoring (principal); Z79.01 Long term (current) use of anticoagulants

== ENCOUNTER → 2018-08-18 11:07 | Outpatient (CLI) | payer BC ==
[2018-07-29 13:51] VITALS: BMI 20.6
[2018-08-18 11:43] LABS: HEMATOCRIT 29.1 % (42.0-54.0); HEMOGLOBIN 8.7 g/dL (13.5-17.5); MCHC 29.9 g/dL (31.0-37.0); MCV 80.4 fL (80.0-100.0); MEAN PLATELET VOLUME 8.5 fL (7.4-10.4); RBC 3.62 10x6/uL (4.20-6.10); RDW 15.7 % (11.5-14.5); WBC 5.6 10x3/uL (4.8-10.8)
[2018-08-18 11:54] LABS: INR 3.77 (0.85-1.17); PROTIME 36.4 SECONDS (11.6-15.0)
[2018-08-18 11:55] LABS: ALBUMIN 3.2 g/dL (3.4-5.0); ALKALINE PHOSPHATASE 136 U/L (46-116); ALT (SGPT) 54 U/L (10-68); BILIRUBIN - TOTAL 0.39 mg/dL (0.2-1.3); CALC OSMOLALITY 276 mosm/kg (275-300); CALCIUM 8.7 mg/dL (8.5-10.1); CARBON DIOXIDE 27.9 mmol/L (21.0-32.0); CHLORIDE - SERUM 104 mmol/L (98-107); CREATININE - SERUM 0.6 mg/dL (0.6-1.3); GLUCOSE 85 mg/dL (74-106); POTASSIUM - SERUM 4.6 mmol/L (3.5-5.1); PROTEIN - SERUM 7.2 g/dL (6.4-8.2); SODIUM 138 mmol/L (136-145); UREA NITROGEN 19 mg/dL (7-18); eGFR NON AFRICAN AMERICAN > 90 mL/min (90-120)
== END | disposition home or self-care (01) ==
LOC: D.RAD 11:07
PROVIDERS: Thoracic Surgery (Cardiothoracic Vascular Surgery)
DX: J91.8 Pleural effusion in other conditions classified elsewhere (principal); D64.9 Anemia, unspecified; Z51.81 Encounter for therapeutic drug level monitoring; Z79.01 Long term (current) use of anticoagulants

== ENCOUNTER → 2018-08-23 10:06 | Outpatient (CLI) | payer BC ==
[2018-07-29 13:51] VITALS: BMI 20.6
[2018-08-23 12:06] LABS: PROTIME > 120.0 SECONDS (11.6-15.0)
== END | disposition home or self-care (01) ==
LOC: D.RAD 10:06
PROVIDERS: Thoracic Surgery (Cardiothoracic Vascular Surgery)
DX: J90 Pleural effusion, not elsewhere classified (principal); J91.8 Pleural effusion in other conditions classified elsewhere; D64.9 Anemia, unspecified

== ENCOUNTER → 2018-08-24 13:24 | Outpatient (CLI) | payer BC ==
[2018-07-29 13:51] VITALS: BMI 20.6
[2018-08-24 14:33] LABS: INR 1.12 (0.85-1.17)
[2018-08-24 14:39] LABS: PROTIME 14.1 SECONDS (11.6-15.0)
== END | disposition home or self-care (01) ==
LOC: D.LAB 08:00
PROVIDERS: Thoracic Surgery (Cardiothoracic Vascular Surgery)
DX: D64.9 Anemia, unspecified (principal)

== ENCOUNTER → 2018-08-30 08:32 | Outpatient (CLI) | payer BC ==
[2018-07-29 13:51] VITALS: BMI 20.6
[2018-08-30 09:34] LABS: BASOPHILS 0.9 % (0-2); EOSINOPHILS 10.5 % (0-7); HEMATOCRIT 32.9 % (42.0-54.0); LYMPHOCYTES 28.4 % (15-50); MCH 23.7 pg (26.0-34.0); MCHC 30.4 g/dL (31.0-37.0); MEAN PLATELET VOLUME 9.4 fL (7.4-10.4); MONOCYTES 6.5 % (2-11); NEUTROPHILS 53.7 % (40-80); RBC 4.22 10x6/uL (4.20-6.10); RDW 15.7 % (11.5-14.5); WBC 4.5 10x3/uL (4.8-10.8)
[2018-08-30 09:35] LABS: PLATELET COUNT 401 10x3/uL (130-400)
[2018-08-30 09:47] LABS: INR 1.99 (0.85-1.17)
[2018-08-30 09:48] LABS: ALKALINE PHOSPHATASE 138 U/L (46-116); ALT (SGPT) 43 U/L (10-68); BILIRUBIN - TOTAL 0.62 mg/dL (0.2-1.3); CALC OSMOLALITY 279 mosm/kg (275-300); CALCIUM 9.2 mg/dL (8.5-10.1); CARBON DIOXIDE 26.4 mmol/L (21.0-32.0); CHLORIDE - SERUM 103 mmol/L (98-107); CREATININE - SERUM 0.8 mg/dL (0.6-1.3); GLUCOSE 91 mg/dL (74-106); MAGNESIUM - SERUM 2.1 mg/dL (1.8-2.4); POTASSIUM - SERUM 4.3 mmol/L (3.5-5.1); PROTEIN - SERUM 7.8 g/dL (6.4-8.2); SODIUM 139 mmol/L (136-145); UREA NITROGEN 18 mg/dL (7-18); eGFR NON AFRICAN AMERICAN > 90 mL/min (90-120)
== END | disposition home or self-care (01) ==
LOC: D.LAB 08:15
PROVIDERS: Thoracic Surgery (Cardiothoracic Vascular Surgery)
DX: J91.8 Pleural effusion in other conditions classified elsewhere (principal); J90 Pleural effusion, not elsewhere classified; D64.9 Anemia, unspecified; Z51.81 Encounter for therapeutic drug level monitoring; Z79.01 Long term (current) use of anticoagulants

== ENCOUNTER → 2018-09-02 08:53 | Outpatient (CLI) | payer BC ==
[2018-07-29 13:51] VITALS: BMI 20.6
[2018-09-02 09:59] LABS: INR 2.02 (0.85-1.17); PROTIME 22.2 SECONDS (11.6-15.0)
== END | disposition home or self-care (01) ==
LOC: D.LAB 08:15
PROVIDERS: Thoracic Surgery (Cardiothoracic Vascular Surgery)
DX: Z51.81 Encounter for therapeutic drug level monitoring (principal); Z79.01 Long term (current) use of anticoagulants

== ENCOUNTER → 2018-09-06 09:59 | Outpatient (CLI) | payer BC ==
[2018-07-29 13:51] VITALS: BMI 20.6
== END | disposition home or self-care (01) ==
LOC: D.LAB 08:15
DX: Z51.81 Encounter for therapeutic drug level monitoring (principal); Z79.01 Long term (current) use of anticoagulants

== ENCOUNTER → 2018-09-09 12:33 | Outpatient (CLI) | payer BC ==
[2018-07-29 13:51] VITALS: BMI 20.6
[2018-09-09 13:15] LABS: INR 2.11 (0.85-1.17)
== END | disposition home or self-care (01) ==
LOC: D.LAB 12:33
PROVIDERS: Thoracic Surgery (Cardiothoracic Vascular Surgery)
DX: Z51.81 Encounter for therapeutic drug level monitoring (principal); Z79.01 Long term (current) use of anticoagulants

== ENCOUNTER → 2018-09-13 10:29 | Outpatient (CLI) | payer BC ==
[2018-07-29 13:51] VITALS: BMI 20.6
[2018-09-13 11:25] LABS: INR 3.18 (0.85-1.17); PROTIME 31.8 SECONDS (11.6-15.0)
== END | disposition home or self-care (01) ==
LOC: D.LAB 10:29
PROVIDERS: Thoracic Surgery (Cardiothoracic Vascular Surgery)
DX: Z51.81 Encounter for therapeutic drug level monitoring (principal); Z79.01 Long term (current) use of anticoagulants

== ENCOUNTER → 2018-09-17 08:56 | Outpatient (CLI) | payer BC ==
[2018-07-29 13:51] VITALS: BMI 20.6
== END | disposition home or self-care (01) ==
LOC: D.LAB 08:56
DX: Z51.81 Encounter for therapeutic drug level monitoring (principal); Z79.01 Long term (current) use of anticoagulants

== ENCOUNTER → 2018-09-23 11:22 | Outpatient (CLI) | payer BC ==
[2018-07-29 13:51] VITALS: BMI 20.6
[2018-09-23 12:16] LABS: INR 2.28 (0.85-1.17); PROTIME 24.4 SECONDS (11.6-15.0)
== END | disposition home or self-care (01) ==
LOC: D.LAB 11:22
PROVIDERS: Thoracic Surgery (Cardiothoracic Vascular Surgery)
DX: Z51.81 Encounter for therapeutic drug level monitoring (principal); Z79.01 Long term (current) use of anticoagulants

== ENCOUNTER → 2018-10-06 09:14 | Outpatient (CLI) | payer BC ==
[2018-07-29 13:51] VITALS: BMI 20.6
[2018-09-06 11:20] LABS: INR 1.46 (0.85-1.17); PROTIME 17.2 SECONDS (11.6-15.0)
[2018-09-17 09:44] LABS: INR 2.88 (0.85-1.17); PROTIME 29.4 SECONDS (11.6-15.0)
[2018-10-06 10:06] LABS: INR 2.44 (0.85-1.17); PROTIME 25.8 SECONDS (11.6-15.0)
== END | disposition home or self-care (01) ==
LOC: D.RT 09-09 10:00 → D.RAD 09:14
PROVIDERS: Internal Medicine Cardiovascular Disease; Thoracic Surgery (Cardiothoracic Vascular Surgery)
DX: I65.23 Occlusion and stenosis of bilateral carotid arteries (principal); Z79.01 Long term (current) use of anticoagulants

== ENCOUNTER → 2018-10-13 09:45 | Outpatient (CLI) | payer BC ==
[2018-07-29 13:51] VITALS: BMI 20.6
[2018-10-13 10:23] LABS: INR 2.54 (0.85-1.17); PROTIME 26.6 SECONDS (11.6-15.0)
== END | disposition home or self-care (01) ==
LOC: D.RAD 10-06 11:00 → D.LAB 09:45
PROVIDERS: Thoracic Surgery (Cardiothoracic Vascular Surgery)
DX: Z51.81 Encounter for therapeutic drug level monitoring (principal); Z79.01 Long term (current) use of anticoagulants

== ENCOUNTER → 2019-01-13 12:21 | Outpatient (CLI) | payer BC ==
[2019-01-13 13:17] LABS: INR 2.35 (0.85-1.17)
== END | disposition home or self-care (01) ==
LOC: D.LAB 12:21
PROVIDERS: Thoracic Surgery (Cardiothoracic Vascular Surgery)
DX: Z79.01 Long term (current) use of anticoagulants (principal); Z51.81 Encounter for therapeutic drug level monitoring

== ENCOUNTER → 2019-02-10 14:49 | Outpatient (CLI) | payer BC ==
[2018-07-29 13:51] VITALS: BMI 20.6
[2019-02-10 16:14] LABS: INR 2.75 (0.85-1.17); PROTIME 29.3 SECONDS (11.6-15.0)
== END | disposition home or self-care (01) ==
LOC: D.LAB 14:49
PROVIDERS: ATTEND Thoracic Surgery (Cardiothoracic Vascular Surgery)
DX: Z51.81 Encounter for therapeutic drug level monitoring (principal); Z79.01 Long term (current) use of anticoagulants

== ENCOUNTER → 2019-03-08 08:29 | Outpatient (CLI) | payer BC ==
[2018-07-29 13:51] VITALS: BMI 20.6
[2019-03-08 15:06] LABS: INR 2.18 (0.85-1.17); PROTIME 23.6 SECONDS (11.6-15.0)
== END | disposition home or self-care (01) ==
LOC: D.LAB 08:13
PROVIDERS: ATTEND Thoracic Surgery (Cardiothoracic Vascular Surgery)
DX: Z51.81 Encounter for therapeutic drug level monitoring (principal); Z79.01 Long term (current) use of anticoagulants

== ENCOUNTER → 2019-03-24 08:08 | Outpatient (CLI) | payer BC ==
[2018-07-29 13:51] VITALS: BMI 20.6
[2019-03-24 14:48] LABS: INR 3.06 (0.85-1.17); PROTIME 30.8 SECONDS (11.6-15.0)
== END | disposition home or self-care (01) ==
LOC: D.LAB 08:08
PROVIDERS: ATTEND Thoracic Surgery (Cardiothoracic Vascular Surgery)
DX: Z51.81 Encounter for therapeutic drug level monitoring (principal); Z79.01 Long term (current) use of anticoagulants

== ENCOUNTER → 2019-04-13 11:26 | Outpatient (CLI) | payer BC ==
[2018-07-29 13:51] VITALS: BMI 20.6
[2019-04-13 13:13] LABS: INR 3.35 (0.85-1.17); PROTIME 33.2 SECONDS (11.6-15.0)
== END | disposition home or self-care (01) ==
LOC: D.LAB 11:26
PROVIDERS: ATTEND Thoracic Surgery (Cardiothoracic Vascular Surgery)
DX: Z51.81 Encounter for therapeutic drug level monitoring (principal); Z79.01 Long term (current) use of anticoagulants

== ENCOUNTER → 2019-05-05 07:24 | Outpatient (CLI) | payer BC ==
[2018-07-29 13:51] VITALS: BMI 20.6
[2019-05-05 08:32] LABS: INR 2.65 (0.85-1.17); PROTIME 27.5 SECONDS (11.6-15.0)
== END | disposition home or self-care (01) ==
LOC: D.LAB 07:24
PROVIDERS: ATTEND Thoracic Surgery (Cardiothoracic Vascular Surgery)
DX: Z79.01 Long term (current) use of anticoagulants (principal)

== ENCOUNTER → 2019-06-07 12:50 | Outpatient (CLI) | payer BC ==
[2018-07-29 13:51] VITALS: BMI 20.6
[2019-06-07 13:34] LABS: INR 3.43 (0.85-1.17); PROTIME 33.8 SECONDS (11.6-15.0)
== END | disposition home or self-care (01) ==
LOC: D.LAB 12:50
PROVIDERS: ATTEND Thoracic Surgery (Cardiothoracic Vascular Surgery)
DX: Z79.01 Long term (current) use of anticoagulants (principal)

== ENCOUNTER → 2019-06-20 11:39 | Outpatient (CLI) | payer BC ==
[2018-07-29 13:51] VITALS: BMI 20.6
--- NOTE | 2019-06-28 13:38 | EC ---
PATIENT:CAMMIE SUAREZ DATE OF SERVICE: 06/20/19 SEX: M MEDICAL RECORD: [id number] DATE OF : [birth year] LOCATION:[facility] AGE OF PATIENT: 49 ADMISSION DATE: 06/20/19 REFERRING PHYSICIAN: INTERPRETING PHYSICIAN: ADELITA CHAMPAGNE MD ECHOCARDIOGRAM REPORT ECHO CHARGES 4 ECHO COMPLETE Date: 06/20/19 CLINICAL DIAGNOSIS: CARDIOMYOPATHY/MVR H/O DEFIBRILLATOR PLACEMENT ECHOCARDIOGRAPHIC MEASUREMENTS (adult normal given) AC root (d.<3.7cm) 3.2 cm LV Septum d (<1.2 cm> 0.8 cm Valve Excursion 1.9 cm LV Septum (systole) 1.2 cm Left Atria (s.<4.0cm> 4.9 cm LVPW d(<1.2cm) 0.9 cm RV (d.<2.3cm) 2.7 cm LVPW (sytole) 1.4 cm LV diastole(<5.6CM) 6.6 cm MV E-F(>70mm/sec) cm LV systole 4.6 cm LVOT Diameter 2.1 cm MV exc.(>10mm) cm Est.ejection fraction (50-75%) % DOPPLER: LVIT cm/sec A 100 cm/sec E 118 cm/sec LA cm/sec RVSP 18.0 mmHg LVOT 81.0 cm/sec AOP1/2T m/s Asc. Ao 121 cm/sec RVOT 51.0 cm/sec RA cm/sec PA 100 cm/sec AV Gradient Peak 5.9 mmHg AV Mean 3.3 mmHg AV Area 2.0 cm MV Gradient Peak 11.2 mmHg MV Mean 3.8 mmHg MV Area cm COMMENTS: OP - HC Chair Trimmer: 1 JUSTIN CAROLYN Credit Office Manager: 1 Dr. Champagne TAPE# PACS Pericardial Effusion N DATE OF SERVICE: FINDINGS: 1. Left ventricular chamber size is dilated. Left ventricular systolic function is moderately reduced at 30%. 2. Left atrium is significantly enlarged at 4.9 cm. Right atrium and right ventricular chamber sizes are as well mild to moderately dilated. 3. Valvular structures: Mitral valve was replaced with a mechanical prosthesis with normal structure and function in this position. The remaining valvular structures have normal structure and motion. ECHOCARDIOGRAM REPORT [id number] CAMMIE SUAREZ 4. Doppler interrogation reveals no significant valvular insufficiency or stenosis and pulmonary systolic pressure is normal at 18 mmHg. 5. No evidence of pericardial effusion or left ventricular thrombus. TRANSINT:[id number] Voice Confirmation ID: [id number] DOCUMENT ID: [id number] ADELITA CHAMPAGNE MD at 1338 CC: [id number] DICTATION DATE: 06/21/19928 CHIN STRAP CUTTER: 06/21/19 1049 DEP CLI 06/20/[address] [address]
== END | disposition home or self-care (01) ==
LOC: D.HCCARDIO 11:30 → D.HCCECHO 11:30
PROVIDERS: ATTEND Internal Medicine Interventional Cardiology
DX: Z95.2 Presence of prosthetic heart valve (principal)

== ENCOUNTER → 2019-07-05 11:42 | Outpatient (CLI) | payer BC ==
[2018-07-29 13:51] VITALS: BMI 20.6
[2019-07-05 13:56] LABS: INR 1.6 (0.85-1.17); PROTIME 18.4 SECONDS (11.6-15.0)
== END | disposition home or self-care (01) ==
LOC: D.LAB 11:42
PROVIDERS: ATTEND Internal Medicine Interventional Cardiology
DX: Z95.2 Presence of prosthetic heart valve (principal)

== ENCOUNTER → 2019-07-08 08:54 | Outpatient (CLI) | payer BC ==
[2018-07-29 13:51] VITALS: BMI 20.6
[2019-07-08 13:14] LABS: INR 1.72 (0.85-1.17); PROTIME 19.5 SECONDS (11.6-15.0)
== END | disposition home or self-care (01) ==
LOC: D.LAB 08:54
PROVIDERS: ATTEND Internal Medicine Interventional Cardiology
DX: Z79.01 Long term (current) use of anticoagulants (principal); Z95.2 Presence of prosthetic heart valve

== ENCOUNTER → 2019-07-15 07:22 | Outpatient (CLI) | payer BC ==
[2018-07-29 13:51] VITALS: BMI 20.6
[2019-07-15 07:52] LABS: INR 2.71 (0.85-1.17); PROTIME 28.1 SECONDS (11.6-15.0)
== END | disposition home or self-care (01) ==
LOC: D.LAB 07:22
PROVIDERS: ATTEND Internal Medicine Interventional Cardiology
DX: I34.0 Nonrheumatic mitral (valve) insufficiency (principal)

== ENCOUNTER → 2019-08-05 08:39 | Outpatient (CLI) | payer BC ==
[2018-07-29 13:51] VITALS: BMI 20.6
[2019-08-05 09:10] LABS: INR 3.15 (0.85-1.17); PROTIME 31.6 SECONDS (11.6-15.0)
== END | disposition home or self-care (01) ==
LOC: D.LAB 08:38 → EDSTATUS 13:20
PROVIDERS: ATTEND Internal Medicine Interventional Cardiology
DX: Z95.2 Presence of prosthetic heart valve (principal)

== ENCOUNTER → 2019-09-05 11:32 | Outpatient (CLI) | payer BC ==
[2018-07-29 13:51] VITALS: BMI 20.6
[2019-09-05 12:16] LABS: INR 2.92 (0.85-1.17); PROTIME 29.8 SECONDS (11.6-15.0)
== END | disposition home or self-care (01) ==
LOC: D.LAB 11:32
PROVIDERS: ATTEND Internal Medicine Interventional Cardiology
DX: Z95.2 Presence of prosthetic heart valve (principal)

== ENCOUNTER → 2019-10-06 06:56 | Outpatient (CLI) | payer BC ==
[2018-07-29 13:51] VITALS: BMI 20.6
[2019-10-06 07:44] LABS: INR 3.15 (0.85-1.17); PROTIME 31.5 SECONDS (11.6-15.0)
== END | disposition home or self-care (01) ==
LOC: D.LAB 06:56
PROVIDERS: ATTEND Internal Medicine Interventional Cardiology
DX: Z95.2 Presence of prosthetic heart valve (principal)

== ENCOUNTER → 2019-12-06 05:48 | Outpatient (CLI) | payer BC ==
[2018-07-29 13:51] VITALS: BMI 20.6
[2019-12-06 08:46] LABS: INR 3.18 (0.85-1.17)
== END | disposition home or self-care (01) ==
LOC: D.LAB 05:48
PROVIDERS: ATTEND Internal Medicine Interventional Cardiology
DX: Z95.2 Presence of prosthetic heart valve (principal)

== ENCOUNTER → 2020-03-05 14:11 | Outpatient (CLI) | payer BC ==
[2018-07-29 13:51] VITALS: BMI 20.6
[2020-03-05 14:42] LABS: INR 2.66 (0.85-1.17); PROTIME 27.9 SECONDS (11.6-15.0)
== END | disposition home or self-care (01) ==
LOC: D.LAB 14:11
PROVIDERS: ATTEND Internal Medicine Cardiovascular Disease
DX: Z95.2 Presence of prosthetic heart valve (principal)

== ENCOUNTER → 2020-04-04 14:37 | Outpatient (CLI) | payer BC ==
[2018-07-29 13:51] VITALS: BMI 20.6
[2020-04-04 15:07] LABS: INR 2.62 (0.85-1.17); PROTIME 27.6 SECONDS (11.6-15.0)
== END | disposition home or self-care (01) ==
LOC: D.LAB 14:37
PROVIDERS: ATTEND Thoracic Surgery (Cardiothoracic Vascular Surgery)
DX: Z95.828 Presence of other vascular implants and grafts (principal)

== ENCOUNTER → 2020-05-08 14:41 | Outpatient (CLI) | payer BC ==
[2018-07-29 13:51] VITALS: BMI 20.6
[2020-05-08 15:05] LABS: INR 2.73 (0.85-1.17); PROTIME 28.5 SECONDS (11.6-15.0)
== END | disposition home or self-care (01) ==
LOC: D.LAB 14:41
PROVIDERS: ATTEND Thoracic Surgery (Cardiothoracic Vascular Surgery)
DX: Z95.4 Presence of other heart-valve replacement (principal)

== ENCOUNTER → 2020-06-05 05:35 | Outpatient (CLI) | payer BC ==
[2018-07-29 13:51] VITALS: BMI 20.6
[2020-06-05 08:41] LABS: INR 2.52 (0.85-1.17); PROTIME 26.8 SECONDS (11.6-15.0)
== END | disposition home or self-care (01) ==
LOC: D.LAB 05:35
PROVIDERS: ATTEND Thoracic Surgery (Cardiothoracic Vascular Surgery)
DX: Z95.2 Presence of prosthetic heart valve (principal)

== ENCOUNTER 2020-06-27 05:23 | Emergency (ER) | payer BC ==
[~2020-06-27] VITALS: Ht 175.3 cm; Wt 65.9 kg
[2020-06-27 05:29] VITALS: Ht 175.3 cm; Wt 65.9 kg
[2020-06-27] MEDS ORDERED: WARFARIN SODIUM5 MG PO (05:34)
[2020-06-27] MEDS ORDERED: WARFARIN SODIU7.5 MG PO (05:34)
[2020-06-27] MEDS ORDERED: AMBIEN5 MG PO (05:35)
[2020-06-27] MEDS ORDERED: NAPROSYN500 MG PO (05:56)
[2020-06-27 06:38] VITALS: BP 118/77
== END 2020-06-27 06:39 | disposition home or self-care (01) ==
LOC: D.ER 05:23
DX: S62.002A Unspecified fracture of navicular [scaphoid] bone of left wrist, initial encounter for closed fracture (principal); M25.532 Pain in left wrist; X58.XXXA Exposure to other specified factors, initial encounter

== ENCOUNTER → 2020-07-10 05:09 | Outpatient (CLI) | payer BC ==
[2020-06-27 05:29] VITALS: BMI 21.4
[~2020-07-10 05:09] MED LIST changes: +AMBIEN5 MG PO; +NAPROSYN500 MG PO; +WARFARIN SODIU7.5 MG PO; +WARFARIN SODIUM5 MG PO
[2020-07-10 05:50] LABS: INR 2.28 (0.85-1.17); PROTIME 24.8 SECONDS (11.6-15.0)
== END | disposition home or self-care (01) ==
LOC: D.LAB 05:09
PROVIDERS: ATTEND Thoracic Surgery (Cardiothoracic Vascular Surgery)
DX: T85.698A Other mechanical complication of other specified internal prosthetic devices, implants and grafts, initial encounter (principal)